=== PATIENT | female | born 1985 | race American Indian/Alaskan Native ===

== ENCOUNTER 2019-01-30 04:04 | Emergency (ER) | payer SELFPAY ==
[2019-01-30 05:02] LABS: Bilirubin,Urine NEG (Negative); Blood,Urine MOD (Negative); Color,Urine Yellow (Yellow); Urobilinogen,Urine < 2.0 mg/dL (<2.0)
[2019-01-30 05:03] LABS: HCG Qualitative,Urine Negative (Negative)
[2019-01-30 05:05] LABS: WBC,Urine > 182.0 /HPF (0.0-6.0)
[2019-01-30] MEDS ORDERED: KETOROLAC 30 MG/1 ML INJ IM ONE (06:06)
[2019-01-30] MEDS ORDERED: LIDOCAINE-MPF (1%) 10 MG/1 ML VIAL 5 ML INFILTRATI ONE (06:06)
--- NOTE | 2019-01-30 06:07 | Emergency Department Report ---
ED Female HPI - General Chief complaint: Urogenital-Female Stated complaint: PELVIC PRESSURE/FREQ URINATION Source: patient Mode of arrival: Ambulatory Limitations: No Limitations - History of Present Illness Initial comments: Patient is a A2 33-year-old -[place] female with no past medical history presents to the ED with complaint of acute onset persistent severe low back pain, dysuria, urinary frequency and urgency, vaginal tingling and suprapubic pressure for the last 5 days. Patient denies diarrhea, nausea, vomiting, headache, chest pain, shortness of breath, fever, chills, cough or dizziness. MD Complaint: dysuria, other (lower back pain) -: Sudden, days(s) (5) Location: suprapubic Radiation: non-radiating Severity: moderate Severity scale (0 -10): 4 Quality: cramping, sharp, aching Consistency: constant Improves with: none Worsens with: urination Are you Now?: No Associated Symptoms: denies other symptoms, abdominal pain, dysuria. denies: vaginal discharge, vaginal bleeding, nausea/vomiting, fever/chills, headaches, loss of appetite, hematuria, rash, seizure, shortness of breath, syncope, weakness - Related Data Sexually active: Yes : 4 Para: 2 A: 2 Previous Rx's Medication Instructions Recorded Last Taken Type Cyclobenzaprine [Flexeril] 10 mg PO Q8H PRN #15 tablet 01/30/19 Unknown Rx Ibuprofen [Motrin] 600 mg PO Q8H PRN #24 tablet 01/30/19 Unknown Rx Sulfamethoxazole/Trimethoprim 1 each PO Q12H #20 tablet 01/30/19 Unknown Rx [Bactrim DS TAB] Allergies Allergy/AdvReac Type Severity Reaction Status Date / Time shellfish derived Allergy Anaphylaxis Verified 06/04/14 19:06 ED Review of Systems ROS: Stated complaint: PELVIC PRESSURE/FREQ URINATION Other details as noted in HPI Constitutional: denies: chills, fever Eyes: denies: eye pain, eye discharge, vision change ENT: denies: ear pain, throat pain Respiratory: denies: cough, shortness of breath, wheezing Cardiovascular: denies: chest pain, palpitations Endocrine: no symptoms reported Gastrointestinal: abdominal pain (suprapubic pressure). denies: nausea, diarrhea Genitourinary: urgency, dysuria, frequency. denies: discharge Musculoskeletal: back pain. denies: joint swelling, arthralgia Skin: denies: rash, lesions Neurological: denies: headache, weakness, paresthesias Psychiatric: denies: anxiety, depression Hematological/Lymphatic: denies: easy bleeding, easy bruising ED Past Medical Hx - Past Medical History Previous Medical History?: Yes Hx Hypertension: No Hx Congestive Heart Failure: No Hx Diabetes: No Hx Deep Vein Thrombosis: No Hx Renal Disease: No Hx Sickle Cell Disease: No Hx Seizures: No Hx Asthma: No Hx COPD: No Hx HIV: No Additional medical history: ovarian cyst - Surgical History Past Surgical History?: No - Social History Smoking Status: Never Smoker Substance Use Type: None - Medications Home Medications: Home Medications Medication Instructions Recorded Confirmed Last Taken Type Cyclobenzaprine [Flexeril] 10 mg PO Q8H PRN #15 tablet 01/30/19 Unknown Rx Ibuprofen [Motrin] 600 mg PO Q8H PRN #24 tablet 01/30/19 Unknown Rx Sulfamethoxazole/Trimethoprim 1 each PO Q12H #20 tablet 01/30/19 Unknown Rx [Bactrim DS TAB] ED Physical Exam - General Limitations: No Limitations General appearance: alert, in no apparent distress - Head Head exam: Present: atraumatic, normocephalic, normal inspection - Eye Eye exam: Present: normal appearance, PERRL, EOMI Pupils: Present: normal accommodation - ENT ENT exam: Present: normal exam, normal orophraynx, mucous membranes moist, TM's normal bilaterally, normal external ear exam - Neck Neck exam: Present: normal inspection, full ROM - Respiratory Respiratory exam: Present: normal lung sounds bilaterally. Absent: respiratory distress, wheezes, chest wall tenderness, accessory muscle use, decreased breath sounds, prolonged expiratory - Cardiovascular Cardiovascular Exam: Present: regular rate, normal rhythm, normal heart sounds. Absent: systolic murmur, diastolic murmur, rubs, gallop - GI/Abdominal GI/Abdominal exam: Present: soft, normal bowel sounds. Absent: tenderness, guarding, rebound, hyperactive bowel sounds, hypoactive bowel sounds, mass - Extremities Exam Extremities exam: Present: normal inspection, full ROM, normal capillary refill - Back Exam Back exam: Present: normal inspection, full ROM - Neurological Exam Neurological exam: Present: alert, oriented X3, CN II-XII intact, normal gait, reflexes normal - Psychiatric Psychiatric exam: Present: normal affect, normal mood - Skin Skin exam: Present: warm, dry, intact, normal color. Absent: rash ED Course - Reevaluation(s) Reevaluation #1: 01/30/19 06:09 This is a 33-year-old female who presented to the ED with dysuria, urinary frequency and urgency, suprapubic pressure and low back pain for the last 5 days. Urinalysis showed significant urinary tract infection. Patient was treated in the ED with Rocephin and Toradol. On reevaluation, patient's pain is well-controlled medication and patient will discharge home on medications including antibiotics and pain medications, and was advised to follow-up with her primary care physician in 5-7 days for reevaluation or return to the ED immediately if symptoms get worse. ED Medical Decision Making - Medical Decision Making This is a 33-year-old female who presented to the ED with dysuria, urinary frequency and urgency, suprapubic pressure and low back pain for the last 5 days. Urinalysis showed significant urinary tract infection. Patient was treated in the ED with Rocephin and Toradol. On reevaluation, patient's pain is well-controlled medication and patient will discharge home on medications including antibiotics and pain medications, and was advised to follow-up with her primary care physician in 5-7 days for reevaluation or return to the ED immediately if symptoms get worse. - Differential Diagnosis acute low back pain; acute UTI; suprapubic pressure Critical care attestation.: If time is entered above; I have spent that time in minutes in the direct care of this critically ill patient, excluding procedure time. ED Disposition Clinical Impression: Acute urinary tract infection, Spasm of muscle of lower back Acute low back pain Qualifiers: Back pain laterality: unspecified Sciatica presence: without sciatica Qualified Code(s): M54.5 - Low back pain Disposition: - TO HOME OR SELFCARE Is pt being admited?: No Does the pt Need Aspirin: No Condition: Stable Instructions: Urinary Tract Infection in Women (ED), Muscle Spasm (ED) Additional Instructions: Take medication with food, drink plenty of fluids and follow-up with your primary care physician in 5-7 days for reevaluation. Return to the ED immediately if symptoms get worse. Prescriptions: Sulfamethoxazole/Trimethoprim [Bactrim DS TAB] 1 each PO Q12H #20 tablet Cyclobenzaprine [Flexeril] 10 mg PO Q8H PRN #15 tablet PRN Reason: Muscle Spasm Ibuprofen [Motrin] 600 mg PO Q8H PRN #24 tablet PRN Reason: Pain Referrals: [facility] [Outside] - 3-5 Days Forms: Work/School Release Form(ED) Time of Disposition: 06:11 Print Language: PASHTO
[2019-01-30 07:08] VITALS: BP 125/83
== END 2019-01-30 07:10 | disposition home or self-care (01) ==
LOC: ED 04:04
DX: N39.0 Urinary tract infection, site not specified (principal); M62.830 Muscle spasm of back; Z91.013 Allergy to seafood; Z88.1 Allergy status to other antibiotic agents; Z79.899 Other long term (current) drug therapy
CPT/HCPCS: 81001; 81025; 96372; 99283; J0696; J1885

== ENCOUNTER 2019-01-30 08:17 | Emergency (ER) | payer SELFPAY ==
[2019-01-30 08:25] VITALS: BP 124/88
[2019-01-30] MEDS ORDERED: FAMOTIDINE 20 MG TAB PO ONE (08:34)
[2019-01-30] MEDS ORDERED: diphenhydrAMINE 25 MG CAP PO ONE (08:34)
[2019-01-30] MEDS ORDERED: dexAMETHasone 4 MG/ML VIAL IM ONE (08:35)
--- NOTE | 2019-01-30 08:43 | Emergency Department Report ---
ED Allergic Reaction HPI - General Chief complaint: Allergic Reaction Stated complaint: ALLERGIC REACTION Time Seen by Provider: 01/30/19 08:29 Source: patient Mode of arrival: Ambulatory Limitations: No Limitations - History of Present Illness Initial Comments: Patient is a 33-year-old female presents the emergency room with complaints of allergic reaction that occurred just prior to arrival. She states that she was evaluated in the ED earlier this morning for a urinary tract infection and given an injection of ceftriaxone and Toradol. she states about an hour and a half later she began to break out in a rash. States she has constantly been itching. Patient denies any shortness of breath, sensation of throat closing, difficulty tolerating secretions. she denies any past medical history. States her only known allergy is shellfish. - Related Data Previous Rx's Medication Instructions Recorded Last Taken Type Cyclobenzaprine [Flexeril] 10 mg PO Q8H PRN #15 tablet 01/30/19 Unknown Rx Ibuprofen [Motrin] 600 mg PO Q8H PRN #24 tablet 01/30/19 Unknown Rx Sulfamethoxazole/Trimethoprim 1 each PO Q12H #20 tablet 01/30/19 Unknown Rx [Bactrim DS TAB] Allergies Allergy/AdvReac Type Severity Reaction Status Date / Time ceftriaxone Allergy Hives Verified 01/30/19 09:25 ketorolac [From Toradol] Allergy Hives Verified 01/30/19 09:25 shellfish derived Allergy Anaphylaxis Verified 06/04/14 19:06 ED Review of Systems ROS: Stated complaint: ALLERGIC REACTION Other details as noted in HPI Comment: All other systems reviewed and negative ED Past Medical Hx - Past Medical History Hx Hypertension: No Hx Congestive Heart Failure: No Hx Diabetes: No Hx Deep Vein Thrombosis: No Hx Renal Disease: No Hx Sickle Cell Disease: No Hx Seizures: No Hx Asthma: No Hx COPD: No Hx HIV: No Additional medical history: ovarian cyst - Surgical History Past Surgical History?: No - Social History Smoking Status: Never Smoker Substance Use Type: Alcohol - Medications Home Medications: Home Medications Medication Instructions Recorded Confirmed Last Taken Type Cyclobenzaprine [Flexeril] 10 mg PO Q8H PRN #15 tablet 01/30/19 Unknown Rx Ibuprofen [Motrin] 600 mg PO Q8H PRN #24 tablet 01/30/19 Unknown Rx Sulfamethoxazole/Trimethoprim 1 each PO Q12H #20 tablet 01/30/19 Unknown Rx [Bactrim DS TAB] ED Physical Exam - General Limitations: No Limitations General appearance: alert, in no apparent distress - Head Head exam: Present: atraumatic, normocephalic - Eye Eye exam: Present: normal appearance - ENT ENT exam: Present: normal orophraynx, mucous membranes moist, other (no uvular edema, uvula is midline, no facial edema, no lip edema, no signs of angioedema) - Respiratory Respiratory exam: Present: normal lung sounds bilaterally. Absent: respiratory distress, wheezes, rales, rhonchi, stridor, chest wall tenderness, accessory muscle use, decreased breath sounds, prolonged expiratory - Cardiovascular Cardiovascular Exam: Present: regular rate, normal rhythm, normal heart sounds. Absent: systolic murmur, diastolic murmur, rubs, gallop - Neurological Exam Neurological exam: Present: alert, oriented X3 - Psychiatric Psychiatric exam: Present: normal affect, normal mood - Skin Skin exam: Present: warm, dry, rash (very small skin colored papules diffusely, no erythema, no blistering, no skin denuding ) ED Course Vital Signs 01/30/19 01/30/19 08:21 09:41 Temperature 97.8 F Pulse Rate 75 78 Respiratory 15 16 Rate Blood Pressure 124/88 O2 Sat by Pulse 99 100 Oximetry ED Medical Decision Making - Medical Decision Making Patient is a 33-year-old female presents the emergency room with complaints of allergic reaction that occurred just prior to arrival. She states that she was evaluated in the ED earlier this morning for a urinary tract infection and given an injection of ceftriaxone and Toradol. she states about an hour and a half later she began to break out in a rash. States she has constantly been itching. Patient denies any shortness of breath, sensation of throat closing, difficulty tolerating secretions. she denies any past medical history. States her only known allergy is shellfish. vitals are normal. on exam: no uvular edema, uvula is midline, no facial edema, no lip edema, no signs of angioedema, lung sounds are clear bilaterally, no stridor, very small skin colored papules diffusely, no erythema, no blistering, no skin denuding. pt given dexamethasone, benadryl, and pepcid. pt states her symptoms significantly resolved and she is feeling much better. She was observed in the emergency room for an hour and a half and had no further symptoms. advised patient that she can take Benadryl [id number] or use cortisone cream for itching. ceftriaxone and Toradol were added to her allergy list. advised pt to please follow-up with a primary care doctor in the next 2-3 days. please increase your fluid intake. Return to the emergency room immediately for any new or worsening symptoms or if begin experiencing symptoms again. Critical care attestation.: If time is entered above; I have spent that time in minutes in the direct care of this critically ill patient, excluding procedure time. ED Disposition Clinical Impression: Allergic reaction Qualifiers: Encounter type: initial encounter Qualified Code(s): T78.40XA - Allergy, unspecified, initial encounter Disposition: TO HOME OR SELFCARE Is pt being admited?: No Does the pt Need Aspirin: No Condition: Stable Instructions: Antibiotic Medication Allergy (ED) Additional Instructions: Please follow-up with a primary care doctor in the next 2-3 days. please increase your fluid intake. Return to the emergency room immediately for any new or worsening symptoms or if begin experiencing symptoms again. Referrals: [facility] [Provider Group] - 2-3 Days [facility] [Outside] - 2-3 Days [facility] [Outside] - 2-3 Days Time of Disposition: 09:28 Print Language: CROATIAN
== END 2019-01-30 09:41 | disposition home or self-care (01) ==
LOC: ED 08:17
DX: T78.40XA Allergy, unspecified, initial encounter (principal); Z79.899 Other long term (current) drug therapy; Z88.6 Allergy status to analgesic agent; Z88.1 Allergy status to other antibiotic agents; Z91.013 Allergy to seafood; X58.XXXA Exposure to other specified factors, initial encounter
CPT/HCPCS: 96372; 99282; J1100

== ENCOUNTER 2019-08-21 12:19 | Observation (INO) | payer SELFPAY ==
[2019-08-21] MEDS ORDERED: SODIUM CHLORIDE 0.9% 1000 ML 1,000 ML IV ONE (12:49)
[2019-08-21] MEDS ORDERED: MORPHINE 4 MG/1 ML INJ IV ONE (12:49)
[2019-08-21] MEDS ORDERED: ONDANSETRON 4 MG/2 ML INJ IV ONE (12:49)
[2019-08-21 12:59] LABS: Basophils % (Auto) 0.3 % (0.0-1.8); Eosinophils % (Auto) 0.2 % (0.0-4.3); Hematocrit 34.1 % (30.3-42.9); Hemoglobin 11.2 gm/dl (10.1-14.3); Lymphocytes # (Auto) 1.5 K/mm3 (1.2-5.4); Lymphocytes % (Auto) 18.4 % (13.4-35.0); Mean Corpuscular HGB Conc 33 % (30-34); Mean Corpuscular Volume 80 fl (79-97); Monocytes # (Auto) 0.7 K/mm3 (0.0-0.8); Monocytes % (Auto) 8.8 % (0.0-7.3); Platelet Count 289 K/mm3 (140-440); Red Blood Count 4.26 M/mm3 (3.65-5.03); Red Cell Distribution Width 14.9 % (13.2-15.2)
[2019-08-21 13:19] LABS: Alanine Aminotransferase 34 units/L (7-56); Albumin 4.3 g/dL (3.9-5); BUN/Creatinine Ratio 10; Blood Urea Nitrogen 6 mg/dL (7-17); Calcium 9.3 mg/dL (8.4-10.2); Hemolysis Index 5
--- NOTE | 2019-08-21 14:20 | Emergency Department Report ---
<MUKUL FIELD - Last Filed: 08/21/19 15:23> ED HPI - General Chief complaint: Abdominal Pain Stated complaint: ABD PAIN/NO BOWEL MOVEMENT Time Seen by Provider: 08/21/19 12:41 Source: patient Mode of arrival: Ambulatory Limitations: No Limitations - History of Present Illness Initial comments: This is a 34-year-old female nontoxic, well nourished in appearance, no acute signs of distress presents to the ED with c/o of pelvic pain x several days. Patient denies any nausea or vomiting. Patient describes pelvic pain as cramping and aching with level of 3/10 diffuse. Stated is not sure if she is . Patient denies chest pain, short of breath, fever, hemoptysis, blood in stool, chills, headache, stiff neck, numbness or tingling. Patient denies any diarrhea or constipation. Denies any blood in stool. Patient denies any recent travels. Patient stated allergies to ceftriaxone and ketorolac. Deneis any signficant PMH. Denies any upper abdominal pain or discomfort. Denies any vaginal bleeding. -: days(s) Location: pelvis Radiation: none Severity: mild Severity scale (0 -10): 3 Quality: cramping, aching Consistency: constant Improves with: none Worsens with: none Associated symptoms: denies other symptoms. denies: nausea/vomiting, vaginal bl eeding, vaginal discharge, abdominal pain, dysuria, headache, vision changes, malaise, dysparuenia, rash, seizure, shortness of breath, syncope, weakness :: Yes Pre-cole care: none - Related Data Home Medications Medication Instructions Recorded Confirmed Last Taken traMADoL [Ultram] 50 mg PO Q4HR PRN 08/21/19 08/21/19 Unknown Previous Rx's Medication Instructions Recorded Last Taken Type Ibuprofen [Motrin] 600 mg PO Q8H PRN #24 tablet 01/30/19 Unknown Rx Allergies Allergy/AdvReac Type Severity Reaction Status Date / Time ceftriaxone Allergy Hives Verified 01/30/19 09:25 ketorolac [From Toradol] Allergy Hives Verified 01/30/19 09:25 shellfish derived Allergy Anaphylaxis Verified 06/04/14 19:06 ED Review of Systems Constitutional: denies: chills, fever Eyes: denies: eye pain, eye discharge, vision change ENT: denies: ear pain, throat pain Respiratory: denies: cough, shortness of breath, wheezing Cardiovascular: denies: chest pain, palpitations Endocrine: no symptoms reported Gastrointestinal: denies: abdominal pain, nausea, diarrhea Genitourinary: denies: urgency, dysuria, discharge Musculoskeletal: denies: back pain, joint swelling, arthralgia Skin: denies: rash, lesions Neurological: denies: headache, weakness, paresthesias Psychiatric: denies: anxiety, depression Hematological/Lymphatic: denies: easy bleeding, easy bruising ED Past Medical Hx - Past Medical History Previous Medical History?: Yes Hx Hypertension: No Hx Congestive Heart Failure: No Hx Diabetes: No Hx Deep Vein Thrombosis: No Hx Renal Disease: No Hx Sickle Cell Disease: No Hx Seizures: No Hx Asthma: No Hx COPD: No Hx HIV: No Additional medical history: ovarian cyst - Surgical History Past Surgical History?: No - Social History Smoking Status: Current Some Day Smoker Substance Use Type: Alcohol, Marijuana - Medications Home Medications: Home Medications Medication Instructions Recorded Confirmed Last Taken Type Ibuprofen [Motrin] 600 mg PO Q8H PRN #24 tablet 01/30/19 08/21/19 Unknown Rx traMADoL [Ultram] 50 mg PO Q4HR PRN 08/21/19 08/21/19 Unknown History ED Physical Exam - General Limitations: No Limitations General appearance: alert, in no apparent distress - Head Head exam: Present: atraumatic, normocephalic - Eye Eye exam: Present: normal appearance - Neck Neck exam: Present: normal inspection, full ROM. Absent: tenderness, meningismus, lymphadenopathy - Respiratory Respiratory exam: Present: normal lung sounds bilaterally. Absent: respiratory distress, wheezes, rales, rhonchi, stridor, chest wall tenderness, accessory muscle use, decreased breath sounds, prolonged expiratory - Cardiovascular Cardiovascular Exam: Present: regular rate, normal rhythm, tachycardia, normal heart sounds. Absent: irregular rhythm, systolic murmur, diastolic murmur, rubs, gallop - GI/Abdominal GI/Abdominal exam: Present: tenderness (RLQ), normal bowel sounds. Absent: distended, guarding, rebound, rigid, diminished bowel sounds - Extremities Exam Extremities exam: Present: normal inspection, full ROM - Back Exam Back exam: Present: normal inspection, full ROM. Absent: tenderness, CVA tenderness (R), CVA tenderness (L), muscle spasm, paraspinal tenderness, vertebral tenderness, rash noted - Neurological Exam Neurological exam: Present: alert, oriented X3, normal gait - Psychiatric Psychiatric exam: Present: normal affect, normal mood - Skin Skin exam: Present: warm, dry, intact, normal color. Absent: rash ED Course - Reevaluation(s) Reevaluation #1: 08/21/19 14:25 Patient is speaking in full sentences with no signs of distress noted. - Consultations Consultation #1: 08/21/19 14:49 Patient has been consulted with James Young about patient history, physical exam, and labs/US and examined patient and agrees for consultation with OBGYN. Consultation #2: 08/21/19 14:53 Patient has been consulted with Dr. Oseguera (OBGYN) about patient history, physical exam, and labs/US and stated to discharge with given methotrexate but Dr. españa then spoke with her as well accepts patient to services with admission. ED Medical Decision Making - Lab Data Result diagrams: 08/21/19 12:30 08/21/19 12:30 - Medical Decision Making This is a 34-year-old female that presents with ectopic . Patient is currently stable and was examined by me and Dr. De Souza. Patient was consulted with Dr. Oseguera (RECEPTIONIST TELEPHONE OPERATOR) and accepts patient to services. Methotrexate canceled without giving to patient. Patient placed on monitor. At time of admission, the patient does not seem toxic or ill in appearance. No acute signs of distress noted. Patient agrees to admission treatment plan of care. No further questions noted by the patient. ED Disposition Clinical Impression: Ectopic Qualifiers: Location of ectopic : tubal Intrauterine status: with intrauterine Laterality: right Qualified Code(s): O00.111 - Right tubal with intrauterine Disposition: DC-09 OP ADMIT IP TO THIS HOSP Is pt being admited?: Yes Condition: Serious <ANSLEY DE SOUZA - Last Filed: 08/22/19 06:11> ED Review of Systems ROS: Stated complaint: ABD PAIN/NO BOWEL MOVEMENT Other details as noted in HPI ED Course Vital Signs 08/21/19 08/21/19 08/21/19 12:25 13:34 15:20 Temperature 98 F Pulse Rate 128 H Respiratory 20 18 20 Rate Blood Pressure 142/91 Blood Pressure [Right] O2 Sat by Pulse 99 Oximetry 08/21/19 08/21/19 08/21/19 15:50 15:59 16:19 Temperature 97.9 F Pulse Rate 78 Respiratory 18 16 Rate Blood Pressure Blood Pressure 132/81 [Right] O2 Sat by Pulse 99 Oximetry ED Medical Decision Making - Lab Data Result diagrams: 08/21/19 15:41 08/21/19 12:30 - Medical Decision Making I went to see this patient after receiving the ultrasound results showing concern for left ectopic , and possible ruptured ectopic. Patient is tender to palpation. No abdominal distention. Mild tachycardia. I spoke with the RECEPTIONIST TELEPHONE OPERATOR on-call, Dr. Oseguera, and the patient will be admitted to her service. Repeat H/H ordered. Critical care attestation.: If time is entered above; I have spent that time in minutes in the direct care of this critically ill patient, excluding procedure time. ED Disposition Is pt being admited?: Yes
--- NOTE | 2019-08-21 14:52 | Ultrasound Report ---
ULTRASOUND OBSTETRIC INDICATION / CLINICAL INFORMATION: pelvic pain. TECHNIQUE: Transabdominal and Transvaginal. COMPARISON: None available. FINDINGS: No IUP is visualized on the transabdominal or transvaginal images. Uterus measures 8.8 x 3.6 x 4.4 cm . Endometrial stripe measures 9 mm. ADNEXA: Probable right tubal ectopic. Left ovary appears within normal limits. FREE FLUID: Moderate amount of free fluid within the pelvic cul-de-sac. ADDITIONAL FINDINGS: None. IMPRESSION: 1. Probable right tubal ectopic with moderate amount of free fluid/hemoperitoneum. 2. No IUP. Critical result discovered at 145 central standard time hours and called to Dr. De Souza at hours on 147 central standard time. A read back was performed. Signer Name: Navi Grigsby MD Signed: 08/21/2019 2:47 PM Workstation Name: [id number]
[2019-08-21] MEDS ORDERED: HYDROmorphone 1 MG/1 ML INJ IV ONE (14:53)
[2019-08-21 15:51] LABS: Hematocrit 30.9 % (30.3-42.9); Hemoglobin 10.3 gm/dl (10.1-14.3)
--- NOTE | 2019-08-21 15:53 | History and Physical Report ---
History of Present Illness Date of examination: 08/21/19 Chief complaint: abdominal pain History of present illness: 34yo with three days of N/V abdominal pain and constipation. Seen in ED, has 1.9 right complex cyst and free fluid in the pelvis BHCG 1581 H/H 11.2/34.1 Concern is for ectopic vs rupture corpus luteum Cyst. I reviewed patient's medical record and she has had a 1.9cm complex right adnexal mass-possibly hemorrhagic since 2013. 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: chlamydia, trichomonas, other (HSV, hx of right ovarian cyst) Family/Genetic History: none Social history: no significant social history - Obstetrical History : 2 Medications and Allergies Allergies Allergy/AdvReac Type Severity Reaction Status Date / Time ceftriaxone Allergy Hives Verified 01/30/19 09:25 ketorolac [From Toradol] Allergy Hives Verified 01/30/19 09:25 shellfish derived Allergy Anaphylaxis Verified 06/04/14 19:06 Home Medications Medication Instructions Recorded Confirmed Last Taken Type Cyclobenzaprine [Flexeril] 10 mg PO Q8H PRN #15 tablet 01/30/19 Unknown Rx Ibuprofen [Motrin] 600 mg PO Q8H PRN #24 tablet 01/30/19 Unknown Rx Sulfamethoxazole/Trimethoprim 1 each PO Q12H #20 tablet 01/30/19 Unknown Rx [Bactrim DS TAB] - Vital Signs Vital signs: Vital Signs Temp Pulse Resp BP Pulse Ox 98 F 128 H 20 142/91 99 08/21/19 12:25 08/21/19 12:25 08/21/19 12:25 08/21/19 12:25 08/21/19 12:25 Temp Pulse Resp BP Pulse Ox 98 F 128 H 20 142/91 99 08/21/19 12:25 08/21/19 12:25 08/21/19 15:20 08/21/19 12:25 08/21/19 12:25 Results Result Diagrams: 08/21/19 15:41 08/21/19 12:30 Abnormal lab results 08/21/19 08/21/19 08/21/19 Range/Units 12:30 12:30 13:16 MCH 26 L (28-32) pg [place] % (Auto) 8.8 H (0.0-7.3) % Seg Neutrophils % 72.3 H (40.0-70.0) % Sodium 136 L (137-145) mmol/L BUN 6 L (7-17) mg/dL Creatinine 0.6 L (0.7-1.2) mg/dL Glucose 113 H (65-100) mg/dL Lipase 10 L (13-60) units/L HCG, Quant 1581 H (0-4) mIU/mL All other labs normal. Ultrasound: report reviewed, image reviewed Assessment and Plan Pelvic pain DDX: rupture hemorrhagic cyst, ruptured corpus luteum cyst, possible early IUP, possible ectopic Plan: Patient remains hemodynamically stable plan for conservative managment Operative laparoscopy if her hemodynamic status changes consider methotrexate in the morning NPO, IV fluids zofran,dilaudid kostas Oseguera MD
[2019-08-21 16:15] LABS: Bilirubin,Urine NEG (Negative); Blood,Urine MOD (Negative); Color,Urine Colorless (Yellow); Protein,Urine <15 mg/dL mg/dL (Negative); RBC,Urine < 1.0 /HPF (0.0-6.0); Urobilinogen,Urine < 2.0 mg/dL (<2.0); WBC,Urine < 1.0 /HPF (0.0-6.0)
[2019-08-21] MEDS ORDERED: ONDANSETRON 4 MG/2 ML INJ IV PRN (16:15)
[2019-08-21] MEDS: LACTATED RINGERS 1,000 ML IV SCH (18:24)
[2019-08-21] MEDS: MORPHINE 2 MG/1 ML INJ IV PRN (19:46)
[2019-08-22] MEDS: MORPHINE 2 MG/1 ML INJ IV PRN (00:53)
[2019-08-22] MEDS: LACTATED RINGERS 1,000 ML IV SCH ×2 (01:50→09:25)
--- NOTE | 2019-08-22 07:46 | Progress Note ---
Assessment and Plan possible ectopic NPO possible surgical management awaiting repeat Hb Tyson Oseguera MD Subjective - Subjective Date of service: 08/22/19 Interval history: possible ectopic hemodynamically stable AAOx3 discuss methotrexate vs laparoscopy NPO awaiting repeat Hb before making a decision patient sitting up in bed, no N/V Objective - Vital Signs Latest vital signs: Vital Signs Temp Pulse Resp Resp BP BP BP 08/22/19 01:22 97.8 F 18 08/22/19 00:53 18 08/22/19 00:32 93 H 119/72 08/21/19 20:17 97.9 F 89 19 135/86 08/21/19 20:15 18 08/21/19 19:46 18 08/21/19 19:45 18 08/21/19 17:10 98.2 F 81 18 126/75 08/21/19 16:19 97.9 F 08/21/19 15:59 78 16 132/81 08/21/19 15:50 18 08/21/19 15:20 20 08/21/19 13:34 18 08/21/19 12:25 98 F 128 H 20 142/91 Pulse Ox 08/22/19 01:22 08/22/19 00:53 08/22/19 00:32 100 08/21/19 20:17 100 08/21/19 20:15 08/21/19 19:46 08/21/19 19:45 08/21/19 17:10 100 08/21/19 16:19 08/21/19 15:59 99 08/21/19 15:50 08/21/19 15:20 08/21/19 13:34 08/21/19 12:25 99 Intake and Output 08/21/19 08/21/19 08/22/19 15:59 23:59 07:59 Intake Total 240 1169.167 Output Total 300 500 Balance -60 669.167 Intake: IV 929.167 Lactated Ringers 1,000 ml 929.167 @ 125 mls/hr IV DIRECT ELROY Rx#:[id number] Oral 240 240 Output: Urine 300 500 Void 300 500 Other: Total, Intake Amount 240 240 Total, Output Amount 300 500 Voiding Method Toilet Weight 77.111 kg 77.111 kg - Labs Labs: Abnormal lab results 08/21/19 08/21/19 08/21/19 Range/Units 12:30 12:30 13:16 MCH 26 L (28-32) pg [place] % (Auto) 8.8 H (0.0-7.3) % Seg Neutrophils % 72.3 H (40.0-70.0) % Sodium 136 L (137-145) mmol/L BUN 6 L (7-17) mg/dL Creatinine 0.6 L (0.7-1.2) mg/dL Glucose 113 H (65-100) mg/dL Lipase 10 L (13-60) units/L HCG, Quant 1581 H (0-4) mIU/mL Ur Specific [place] (1.003-1.030) 08/21/19 Range/Units 15:58 MCH (28-32) pg [place] % (Auto) (0.0-7.3) % Seg Neutrophils % (40.0-70.0) % Sodium (137-145) mmol/L BUN (7-17) mg/dL Creatinine (0.7-1.2) mg/dL Glucose (65-100) mg/dL Lipase (13-60) units/L HCG, Quant (0-4) mIU/mL Ur Specific [place] 1.001 L (1.003-1.030)
[2019-08-22 07:51] LABS: Hematocrit 27.9 % (30.3-42.9); Hemoglobin 9.5 gm/dl (10.1-14.3); Mean Corpuscular HGB Conc 34 % (30-34); Mean Corpuscular Volume 80 fl (79-97); Platelet Count 237 K/mm3 (140-440); Red Blood Count 3.49 M/mm3 (3.65-5.03); Red Cell Distribution Width 14.2 % (13.2-15.2)
[2019-08-22] MEDS ORDERED: HYDROmorphone 1 MG/1 ML INJ IV PRN (09:47)
[2019-08-22] MEDS ORDERED: MIDAZOLAM 2 MG/2 ML INJ IV NR (10:00)
[2019-08-22] MEDS ORDERED: SCOPOLAMINE TRANSDERMAL PATCH 72 HR TD NR (10:00)
[2019-08-22] MEDS ORDERED: propofoL 200 MG/20 ML VIAL IV ONE (10:07)
[2019-08-22] MEDS ORDERED: ONDANSETRON 4 MG/2 ML INJ ONE (10:07)
[2019-08-22] MEDS ORDERED: HYDROmorphone 1 MG/1 ML INJ ONE (10:07)
[2019-08-22] MEDS ORDERED: ROCURONIUM 50 MG/5 ML INJ IV ONE (10:07)
[2019-08-22] MEDS ORDERED: dexAMETHasone 20 MG/5 ML VIAL ONE (10:07)
[2019-08-22] MEDS ORDERED: LIDOCAINE MPF (2%) 20 MG/1 ML VIAL 5 ML ONE (10:07)
--- NOTE | 2019-08-22 10:27 | Progress Note ---
Assessment and Plan ectopic Plan patient declines surgery Methotrexate stat FUp in 4 days for repeat blood draw Rx maxwell Tomas MD Subjective - Subjective Date of service: 08/22/19 Principal diagnosis: ectopic Interval history: possible ectopic Hb 9.5 Hemodynamically stable I had a long conversation with this patient regarding surgical management vs methotrexate. I had placed this patient on the OR schedule and she is declining operative management I reviewed significant morbidity and mortality related to possible ruptured ectopic I reviewed the side effects related to methotrexate to include but not limited to nausea,vomiting and increased pain or vaginal bleeding She also understands she will require close follow up and must return to the ER for any change in clinical status She is sitting up, crossing legs, able to ambulate and tolerate PO Patient reports: ambulating normally Objective - Vital Signs Latest vital signs: Vital Signs Temp Pulse Resp Resp BP BP BP 08/22/19 08:43 98.1 F 84 16 129/79 08/22/19 01:22 97.8 F 18 08/22/19 00:53 18 08/22/19 00:32 93 H 119/72 08/21/19 20:17 97.9 F 89 19 135/86 08/21/19 20:15 18 08/21/19 19:46 18 08/21/19 19:45 18 08/21/19 17:10 98.2 F 81 18 126/75 08/21/19 16:19 97.9 F 08/21/19 15:59 78 16 132/81 08/21/19 15:50 18 08/21/19 15:20 20 08/21/19 13:34 18 08/21/19 12:25 98 F 128 H 20 142/91 Pulse Ox 08/22/19 08:43 100 08/22/19 01:22 08/22/19 00:53 08/22/19 00:32 100 08/21/19 20:17 100 08/21/19 20:15 08/21/19 19:46 08/21/19 19:45 08/21/19 17:10 100 08/21/19 16:19 08/21/19 15:59 99 08/21/19 15:50 08/21/19 15:20 08/21/19 13:34 08/21/19 12:25 99 Intake and Output 08/21/19 08/22/19 08/22/19 23:59 07:59 15:59 Intake Total 240 1169.167 947.917 Output Total 300 500 Balance -60 669.167 947.917 Intake: IV 929.167 947.917 Lactated Ringers 1,000 ml 929.167 947.917 @ 125 mls/hr IV DIRECT ELROY Rx#:[id number] Oral 240 240 Output: Urine 300 500 Void 300 500 Other: Total, Intake Amount 240 240 Total, Output Amount 300 500 Voiding Method Toilet Toilet Weight 77.111 kg - Exam Breasts: Present: deferred Cardiovascular: Present: Regular rate Lungs: Present: Clear to auscultation Abdomen: Present: normal appearance, soft, normal bowel sounds (+ve RLQ tenderness, no rebound or guarding,negative leg raise bilaterally) Deep Tendon Reflex Grade: Normal +2 - Labs Labs: Abnormal lab results 08/21/19 08/21/19 08/21/19 Range/Units 12:30 12:30 13:16 RBC (3.65-5.03) M/mm3 Hgb (10.1-14.3) gm/dl Hct (30.3-42.9) % MCH 26 L (28-32) pg [place] % (Auto) 8.8 H (0.0-7.3) % Seg Neutrophils % 72.3 H (40.0-70.0) % Sodium 136 L (137-145) mmol/L BUN 6 L (7-17) mg/dL Creatinine 0.6 L (0.7-1.2) mg/dL Glucose 113 H (65-100) mg/dL Lipase 10 L (13-60) units/L HCG, Quant 1581 H (0-4) mIU/mL Ur Specific [place] (1.003-1.030) 08/21/19 08/22/19 Range/Units 15:58 06:48 RBC 3.49 L (3.65-5.03) M/mm3 Hgb 9.5 L (10.1-14.3) gm/dl Hct 27.9 L (30.3-42.9) % MCH 27 L (28-32) pg [place] % (Auto) (0.0-7.3) % Seg Neutrophils % (40.0-70.0) % Sodium (137-145) mmol/L BUN (7-17) mg/dL Creatinine (0.7-1.2) mg/dL Glucose (65-100) mg/dL Lipase (13-60) units/L HCG, Quant (0-4) mIU/mL Ur Specific [place] 1.001 L (1.003-1.030)
--- NOTE | 2019-08-22 12:15 | Ultrasound Report ---
ULTRASOUND OBSTETRIC INDICATION / CLINICAL INFORMATION: pelvic pain. TECHNIQUE: Transabdominal and Transvaginal. COMPARISON: None available. FINDINGS: No IUP is visualized on the transabdominal or transvaginal images. Uterus measures 8.8 x 3.6 x 4.4 cm . Endometrial stripe measures 9 mm. ADNEXA: Probable right tubal ectopic. Left ovary appears within normal limits. FREE FLUID: Moderate amount of free fluid within the pelvic cul-de-sac. ADDITIONAL FINDINGS: None. IMPRESSION: 1. Probable right tubal ectopic with moderate amount of free fluid/hemoperitoneum. 2. No IUP. Critical result discovered at 145 central standard time hours and called to Dr. De Souza at hours on 147 central standard time. A read back was performed. Signer Name: Navi Grigsby MD Signed: 08/21/2019 2:48 PM Workstation Name: [id number]
[2019-08-22 16:02] VITALS: BP 111/71
== END 2019-08-22 16:20 | disposition home or self-care (01) ==
LOC: ED 12:19 → OB 15:22
PROVIDERS: ADMIT Obstetrics & Gynecology; ATTEND Obstetrics & Gynecology
DX: O00.111 Right tubal pregnancy with intrauterine pregnancy (principal); O21.9 Vomiting of pregnancy, unspecified; O99.330 Smoking (tobacco) complicating pregnancy, unspecified trimester; F17.200 Nicotine dependence, unspecified, uncomplicated; Z88.1 Allergy status to other antibiotic agents; Z88.6 Allergy status to analgesic agent; Z91.013 Allergy to seafood; Z3A.00 Weeks of gestation of pregnancy not specified
CPT/HCPCS: 36415; 76801; 76817; 80053; 81001; 83690; 84702; 84703; 85014; 85018; 85025; 85027; 86850; 86900; 86901; 96361; 96372; 96374; 96375; 96376; 99285; G0378; J1100; J1170; J2270; J2405; J7030; J7120; J9260; J2704

== ENCOUNTER 2019-08-26 13:37 | Emergency (ER) | payer SELFPAY ==
--- NOTE | 2019-08-26 13:51 | History and Physical Report ---
History of Present Illness Date of examination: 08/26/19 Chief complaint: ectopic History of present illness: 34yo with ectopic SP methotrexate on 09/21/19 BHCG increased from 1500 to 4074 HB stable at 10.4 PAtient feels better, is able to ambulate, tolerate PO and had no nausea or vomiting. She was seen in the clinic and I recommended surgical management. Patient continues to decline surgical options. She was sent to the ER for a second dose of methotrexate. Extensive education and counseling given in the outpatient setting with risks, benefit and possible complications reviewed. She understands the significant morbidity and mortality related to her current condition and is aware that surgery may be her only option if she fails methotrexate. She is hemodynamically stable. Past History - Obstetrical History : 2 Medications and Allergies Allergies Allergy/AdvReac Type Severity Reaction Status Date / Time ceftriaxone Allergy Hives Verified 01/30/19 09:25 ketorolac [From Toradol] Allergy Hives Verified 01/30/19 09:25 shellfish derived Allergy Anaphylaxis Verified 06/04/14 19:06 Home Medications Medication Instructions Recorded Confirmed Last Taken Type Ibuprofen [Motrin] 600 mg PO Q8H PRN #24 tablet 01/30/19 08/21/19 Unknown Rx traMADoL [Ultram] 50 mg PO Q4HR PRN 08/21/19 08/21/19 Unknown History oxyCODONE /ACETAMINOPHEN [Percocet 1 tab PO Q6HR PRN #20 tablet 08/22/19 Unknown Rx 5/325] - Vital Signs Vital signs: Vital Signs Temp Pulse Resp BP Pulse Ox 98.6 F 86 16 111/68 100 08/26/19 13:39 08/26/19 13:39 08/26/19 13:39 08/26/19 13:39 08/26/19 13:39 Temp Pulse Resp BP Pulse Ox 98.6 F 86 16 111/68 100 08/26/19 13:39 08/26/19 13:39 08/26/19 13:39 08/26/19 13:39 08/26/19 13:39 - Physical Exam Breasts: Positive: normal Cardiovascular: Regular rate Lungs: Positive: Clear to auscultation Abdomen: Positive: normal appearance, soft, normal bowel sounds. Negative: distention, tenderness, guarding, rigidity Deep Tendon Reflex Grade: Normal +2 Results All other labs normal. Assessment and Plan Ectopic Plan: Abdominal exam significantly improved Methotrexate per protocol Follow up in 4 days as outpatient Tyson Oseguera md
--- NOTE | 2019-08-26 15:01 | Emergency Department Report ---
<WILLIAM REAVES - Last Filed: 08/26/19 17:15> ED HPI - General Chief complaint: Abdominal Pain Stated complaint: SENT FROM OBGYN/ECTOPIC Time Seen by Provider: 08/26/19 14:11 Source: patient, RN notes reviewed, old records reviewed Mode of arrival: Ambulatory Limitations: No Limitations - History of Present Illness Initial comments: 34-year-old -[place] female presents to the emergency room stating that Dr. Bernardoton her FINANCE ADVISOR from [facility] to the emergency room to have her second dose of methotrexate. Patient was seen here on 11/20/2019 and was found to have a type of . Patient was then transferred to L&D and then discharged home after having a dose of methotrexate. Patient presented to her OB office today and was noted that her beta hCG had elevated to 4074. Discussion was made with her FINANCE ADVISOR to either have surgical removal other type of or take methotrexate. Patient opted to take methotrexate. Patient denies any abdominal pain reports she has had some light vaginal spotting but no other concerns. Vaginal bleeding: light :: Yes - Related Data Home Medications Medication Instructions Recorded Confirmed Last Taken traMADoL [Ultram] 50 mg PO Q4HR PRN 08/21/19 08/21/19 Unknown Previous Rx's Medication Instructions Recorded Last Taken Type Ibuprofen [Motrin] 600 mg PO Q8H PRN #24 tablet 01/30/19 Unknown Rx oxyCODONE /ACETAMINOPHEN [Percocet 1 tab PO Q6HR PRN #20 tablet 08/22/19 Unknown Rx 5/325] Allergies Allergy/AdvReac Type Severity Reaction Status Date / Time ceftriaxone Allergy Hives Verified 01/30/19 09:25 ketorolac [From Toradol] Allergy Hives Verified 01/30/19 09:25 shellfish derived Allergy Anaphylaxis Verified 06/04/14 19:06 ED Review of Systems Comment: All other systems reviewed and negative ED Past Medical Hx - Past Medical History Previous Medical History?: Yes Hx Hypertension: No Hx Congestive Heart Failure: No Hx Diabetes: No Hx Deep Vein Thrombosis: No Hx Renal Disease: No Hx Sickle Cell Disease: No Hx Seizures: No Hx Asthma: No Hx COPD: No Hx HIV: No Additional medical history: ovarian cyst - Surgical History Past Surgical History?: No - Social History Smoking Status: Current Some Day Smoker Substance Use Type: Alcohol - Medications Home Medications: Home Medications Medication Instructions Recorded Confirmed Last Taken Type Ibuprofen [Motrin] 600 mg PO Q8H PRN #24 tablet 01/30/19 08/21/19 Unknown Rx traMADoL [Ultram] 50 mg PO Q4HR PRN 08/21/19 08/21/19 Unknown History oxyCODONE /ACETAMINOPHEN [Percocet 1 tab PO Q6HR PRN #20 tablet 08/22/19 Unknown Rx 5/325] ED Physical Exam - General Limitations: No Limitations ED Medical Decision Making - Medical Decision Making 34-year-old -Aust[place] female presents to the emergency room stating that Dr. Schulz her FINANCE ADVISOR from [facility] to the emergency room to have her second dose of methotrexate. Patient was seen here on 11/20/2019 and was found to have a type of . Patient was then transferred to L&D and then discharged home after having a dose of methotrexate. Patient presented to her OB office today and was noted that her beta hCG had elevated to 4074. Discussion was made with her FINANCE ADVISOR to either have surgical removal other type of or take methotrexate. Patient opted to take methotrexate. Patient denies any abdominal pain reports she has had some light vaginal spotting but no other concerns. Consent form for methotrexate was signed with patient. Spoke with Dr. Jack she informed me that she placed the order in pharmacy and she would like patient to follow-up next . Discussed with patient that Dr. Schulz will like her to follow-up on in her office to be reevaluated. Patient verbalized understanding. Patient will be discharged home with information on methotrexate. ED Disposition Clinical Impression: Ectopic Qualifiers: Location of ectopic : tubal Intrauterine status: with intrauterine Laterality: right Qualified Code(s): O00.111 - Right tubal with intrauterine Disposition: TO HOME OR SELFCARE Is pt being admited?: No Does the pt Need Aspirin: No Condition: Stable Instructions: Abdominal Pain (ED) Additional Instructions: Dr. Schulz will like her to follow-up on in her office to be reevaluated. Patient verbalized understanding. Patient will be discharged home with information on methotrexate. Referrals: ENRIQUETA BERRIOS MD [Primary Care Provider] - 3-5 Days SERVANDO JACK MD [Staff Physician] - 3-5 Days Forms: Methotrexate D/C Instructions <MICHEAL WHITEHEAD - Last Filed: 08/27/19 19:19> ED Review of Systems ROS: Stated complaint: SENT FROM OBGYN/ECTOPIC Other details as noted in HPI ED Course Vital Signs 08/26/19 08/26/19 13:39 16:55 Temperature 98.6 F 98.1 F Pulse Rate 86 82 Respiratory 16 16 Rate Blood Pressure 111/68 Blood Pressure 118/77 [Left] O2 Sat by Pulse 100 100 Oximetry Critical care attestation.: If time is entered above; I have spent that time in minutes in the direct care of this critically ill patient, excluding procedure time. ED Disposition Is pt being admited?: No Does the pt Need Aspirin: No
[2019-08-26 17:17] VITALS: BP 118/77
== END 2019-08-26 16:55 | disposition home or self-care (01) ==
LOC: ED 13:37
DX: O00.90 Unspecified ectopic pregnancy without intrauterine pregnancy (principal); Z79.899 Other long term (current) drug therapy; Z91.013 Allergy to seafood; Z88.8 Allergy status to other drugs, medicaments and biological substances
CPT/HCPCS: 99282; J9260

== ENCOUNTER 2019-08-30 02:50 | Observation (INO) | payer MEDICAID ==
[2019-08-30] MEDS ORDERED: SODIUM CHLORIDE 0.9% 1000 ML 1,000 ML IV ONE ×2 (03:12→05:09)
[2019-08-30] MEDS ORDERED: MORPHINE 4 MG/1 ML INJ IV ONE (03:12)
--- NOTE | 2019-08-30 03:12 | Emergency Department Report ---
ED Female HPI - General Chief complaint: Vaginal Bleeding Stated complaint: ECTOPIC W/PAIN Time Seen by Provider: 08/30/19 03:01 Source: patient, EMS Mode of arrival: Stretcher Limitations: Physical Limitation - History of Present Illness Initial comments: Ms. Valdes is a 34 yo female who presents with severe buttock and lower back pain which began this evening. She was treated with two doses of methotrexate for ectopic . She has had mild vaginal spotting. She arrives via EMS. Pain is sudden, severe. No radiation. Constant. Worse with movement. Dully achy quality. This is patient's 5th . She has been followed by Dr. Oseguera. According to Dr. Oseguera's documentation, surgical intervention was recommended. However, patient declined. According US on August 21, 2019, impression: probable right tubal ectopic with moderate amount of free fluid/hemoperitoneum -: Sudden, This evening Severity: severe Severity scale (0 -10): 10 Quality: dull, aching Consistency: constant Improves with: none Worsens with: none Are you Now?: Yes (ectopic ) - Related Data Home Medications Medication Instructions Recorded Confirmed Last Taken traMADoL [Ultram] 50 mg PO Q4HR PRN 08/21/19 08/21/19 Unknown Previous Rx's Medication Instructions Recorded Last Taken Type Ibuprofen [Motrin] 600 mg PO Q8H PRN #24 tablet 01/30/19 Unknown Rx oxyCODONE /ACETAMINOPHEN [Percocet 1 tab PO Q6HR PRN #20 tablet 08/22/19 Unknown Rx 5/325] Allergies Allergy/AdvReac Type Severity Reaction Status Date / Time ceftriaxone Allergy Hives Verified 01/30/19 09:25 ketorolac [From Toradol] Allergy Hives Verified 01/30/19 09:25 shellfish derived Allergy Anaphylaxis Verified 06/04/14 19:06 ED Review of Systems ROS: Stated complaint: ECTOPIC W/PAIN Other details as noted in HPI Comment: All other systems reviewed and negative Constitutional: denies: fever, malaise Respiratory: denies: cough, shortness of breath Cardiovascular: denies: chest pain Genitourinary: denies: urgency, dysuria Musculoskeletal: back pain ED Past Medical Hx - Past Medical History Previous Medical History?: Yes Hx Hypertension: No Hx Congestive Heart Failure: No Hx Diabetes: No Hx Deep Vein Thrombosis: No Hx Renal Disease: No Hx Sickle Cell Disease: No Hx Seizures: No Hx Asthma: No Hx COPD: No Hx HIV: No Additional medical history: ovarian cyst - Surgical History Past Surgical History?: No - Social History Smoking Status: Current Every Day Smoker Substance Use Type: None - Medications Home Medications: Home Medications Medication Instructions Recorded Confirmed Last Taken Type Ibuprofen [Motrin] 600 mg PO Q8H PRN #24 tablet 01/30/19 08/21/19 Unknown Rx traMADoL [Ultram] 50 mg PO Q4HR PRN 08/21/19 08/21/19 Unknown History oxyCODONE /ACETAMINOPHEN [Percocet 1 tab PO Q6HR PRN #20 tablet 08/22/19 Unknown Rx 5/325] ED Physical Exam - General Limitations: Physical Limitation General appearance: alert, other (appears in severe pain) - Head Head exam: Present: atraumatic, normocephalic - Eye Eye exam: Present: normal appearance - ENT ENT exam: Present: mucous membranes moist - Neck Neck exam: Present: normal inspection, full ROM - Respiratory Respiratory exam: Present: normal lung sounds bilaterally. Absent: respiratory distress, wheezes, rales, rhonchi - Cardiovascular Cardiovascular Exam: Present: regular rate, normal rhythm, normal heart sounds. Absent: systolic murmur, diastolic murmur, rubs, gallop - GI/Abdominal GI/Abdominal exam: Present: soft, normal bowel sounds. Absent: distended, tenderness, guarding, rebound - Extremities Exam Extremities exam: Present: normal inspection - Neurological Exam Neurological exam: Present: alert, oriented X3 - Psychiatric Psychiatric exam: Present: normal affect, anxious - Skin Skin exam: Present: warm, dry, intact, normal color. Absent: rash ED Course Vital Signs 08/30/19 08/30/19 08/30/19 03:05 03:25 03:55 Temperature 98.2 F Pulse Rate 97 H Respiratory 16 16 16 Rate Blood Pressure 132/80 [Left] O2 Sat by Pulse 99 Oximetry - Reevaluation(s) Reevaluation #1: 08/30/19 03:19 Dr. Dixon consulted. Recommended stat H&H. ED Medical Decision Making - Lab Data Result diagrams: 08/30/19 03:18 08/30/19 03:18 Laboratory Results - last 24 hr 08/30/19 08/30/19 08/30/19 03:14 03:18 03:18 WBC 7.0 RBC 3.90 Hgb 10.1 Hct 31.3 MCV 80 MCH 26 L MCHC 32 RDW 14.3 Plt Count 338 Lymph % (Auto) 20.0 [place] % (Auto) 5.5 Eos % (Auto) 0.9 Baso % (Auto) 0.8 Lymph # 1.4 Ida # 0.4 Eos # 0.1 Baso # 0.1 Seg Neutrophils % 72.8 H Seg Neutrophils # 5.1 PT 13.5 INR 1.02 APTT 27.9 Sodium Potassium Chloride Carbon Dioxide Anion Gap BUN Creatinine Estimated GFR BUN/Creatinine Ratio Glucose Calcium HCG, Quant Urine Color Yellow Urine Turbidity Clear Urine pH 6.0 Ur Specific [place] 1.010 Urine Protein <15 mg/dl Urine Glucose (UA) Neg Urine Ketones Neg Urine Blood Lg Urine Nitrite Neg Urine Bilirubin Neg Urine Urobilinogen 2.0 Ur Leukocyte Esterase Neg Urine WBC (Auto) 1.0 Urine RBC (Auto) 3.0 U Epithel Cells (Auto) 4.0 Urine Bacteria (Auto) 1+ Urine Mucus Few 08/30/19 08/30/19 03:18 03:18 WBC RBC Hgb Hct MCV MCH MCHC RDW Plt Count Lymph % (Auto) [place] % (Auto) Eos % (Auto) Baso % (Auto) Lymph # Ida # Eos # Baso # Seg Neutrophils % Seg Neutrophils # PT INR APTT Sodium 134 L Potassium 3.2 L Chloride 97.9 L Carbon Dioxide 24 Anion Gap 15 BUN 7 Creatinine 0.6 L Estimated GFR > 60 BUN/Creatinine Ratio 12 Glucose 110 H Calcium 9.1 HCG, Quant 2033 H Urine Color Urine Turbidity Urine pH Ur Specific [place] Urine Protein Urine Glucose (UA) Urine Ketones Urine Blood Urine Nitrite Urine Bilirubin Urine Urobilinogen Ur Leukocyte Esterase Urine WBC (Auto) Urine RBC (Auto) U Epithel Cells (Auto) Urine Bacteria (Auto) Urine Mucus - Radiology Data Radiology results: report reviewed Ultrasound reveals: Complex right adnexal lesion measuring 5 cm - Medical Decision Making : Presents with severe back buttock pain after receiving 2 doses of methotrexate for ectopic . She has mild vaginal spotting. Since August 20, hCG has increased from 1581 miu/ml to 2033 miU/ml. No free fluid on US. H&H at baseline. Pain has decreased from 10 to 5 with one dose of morphine. Impression: ectopic which failed methotrexate treatment Dr. Dixon recommended admissionto his service on the mother baby unit I provided bridging orders Critical Care Time: Yes Critical care time in (mins) excluding proc time.: 40 Critical care attestation.: If time is entered above; I have spent that time in minutes in the direct care of this critically ill patient, excluding procedure time. 40 minutes of critical care time excluding procedures were used in the care of the patient. I reviewed electronic record. I discussed treatment plan with the nursing team members at the bedside. I came immediately to the bedside upon patient's arrival. I obtained history from patient. Upon arrival after H&P I consulted jump roll operator regarding concern for ruptured ectopic due to severe pain and previous ultrasound findings. Patient required multiple interventions and reassessments. ED Disposition Clinical Impression: Ectopic Disposition: OP ADMIT IP TO THIS HOSP Is pt being admited?: No Does the pt Need Aspirin: No Condition: Stable
[2019-08-30] MEDS ORDERED: ONDANSETRON 4 MG/2 ML INJ IV ONE (03:14)
[2019-08-30 03:37] LABS: Basophils # (Auto) 0.1 K/mm3 (0.0-0.1); Basophils % (Auto) 0.8 % (0.0-1.8); Eosinophils # (Auto) 0.1 K/mm3 (0.0-0.4); Eosinophils % (Auto) 0.9 % (0.0-4.3); Hematocrit 31.3 % (30.3-42.9); Hemoglobin 10.1 gm/dl (10.1-14.3); Lymphocytes # (Auto) 1.4 K/mm3 (1.2-5.4); Mean Corpuscular HGB Conc 32 % (30-34); Mean Corpuscular Volume 80 fl (79-97); Monocytes # (Auto) 0.4 K/mm3 (0.0-0.8); Monocytes % (Auto) 5.5 % (0.0-7.3); Platelet Count 338 K/mm3 (140-440); Red Cell Distribution Width 14.3 % (13.2-15.2)
[2019-08-30 03:45] LABS: INR 1.02 (0.87-1.13); Partial Thromboplastin Time 27.9 Sec. (24.2-36.6)
[2019-08-30 03:50] LABS: Bacteria,Urine 1+ /HPF (Negative); Bilirubin,Urine NEG (Negative); Blood,Urine LG (Negative); Color,Urine Yellow (Yellow); Mucus,Urine FEW /HPF; Protein,Urine <15 mg/dL mg/dL (Negative)
[2019-08-30 03:54] LABS: BUN/Creatinine Ratio 12; Blood Urea Nitrogen 7 mg/dL (7-17); Calcium 9.1 mg/dL (8.4-10.2); Hemolysis Index 3
--- NOTE | 2019-08-30 04:05 | Ultrasound Report ---
Pelvic ultrasound. HISTORY: Pelvic pain. FINDINGS: The uterus measures 9.1 x 3.1 x 4.2 cm. The endometrial stripe measures 5.7 mm. No intraute rine is identified. Right ovary measures 4.9 x 3.9 x 4.8 cm. Left ovary measures 3.2 x 2.8 x 1.9 cm. Both ovaries demonst rate flow. A complex right adnexal lesion measures 5 x 3.5 x 3.9 cm. The left ovary contains a 1.1 cm complex cyst. Negative for free fluid. IMPRESSION: Complex lesion right adnexa presumably represents the patient's known ectopic . Signer Name: Brad Holm MD Signed: 08/30/2019 4:01 AM Workstation Name: [email or web address]
[2019-08-30] MEDS ORDERED: MORPHINE 4 MG/1 ML INJ IV PRN (05:08)
[2019-08-30] MEDS ORDERED: HYDROcodone/ACETAMINOPHEN 5-325 MG TAB PO PRN (09:01)
[2019-08-30] MEDS ORDERED: MAGNESIUM HYDROXIDE (MOM) ORAL LIQD UDC PO PRN (09:30)
[2019-08-30 09:39] VITALS: BP 109/69
--- NOTE | 2019-08-30 11:04 | History and Physical Report ---
History of Present Illness Date of examination: 08/30/19 Date of admission: 08/30/19 05:07 Chief complaint: pelvic pain History of present illness: Patient with ectopic SP methoretexate x2 doses admitted overnight for obs for pelvic pain she admits at bedside that she has not had a BM in over a week. VB minimal Able to ambulate and tolerate PO, afebrile. She admits she is feeling much better after mtx [facility] 2032 US; no free fluid, +ve 5cm complex mass Past History Past Surgical History: no surgical history - Obstetrical History : 2 Medications and Allergies Allergies Allergy/AdvReac Type Severity Reaction Status Date / Time ceftriaxone Allergy Hives Verified 01/30/19 09:25 ketorolac [From Toradol] Allergy Hives Verified 01/30/19 09:25 shellfish derived Allergy Anaphylaxis Verified 06/04/14 19:06 Home Medications Medication Instructions Recorded Confirmed Last Taken Type oxyCODONE /ACETAMINOPHEN [Percocet 1 tab PO Q6HR PRN #20 tablet 08/22/19 08/30/19 Unknown Rx 5/325] Active Meds: Active Medications Acetaminophen/Hydrocodone Bitart (Foley 5/325) 2 each PO Q6H PRN PRN Reason: Pain, Moderate (4-6) Last Admin: 08/30/19 09:31 Dose: 2 each Documented by: Magnesium Hydroxide (Milk Of Magnesia) 30 ml PO Q4H PRN PRN Reason: Constipation Last Admin: 08/30/19 09:31 Dose: 30 ml Documented by: Morphine Sulfate (Morphine) 4 mg IV Q1H PRN PRN Reason: Pain , Severe (7-10) Last Admin: 08/30/19 05:37 Dose: 4 mg Documented by: - Vital Signs Vital signs: Vital Signs Temp Pulse Resp BP Pulse Ox 98.2 F 97 H 16 132/80 99 08/30/19 03:05 08/30/19 03:05 08/30/19 03:05 08/30/19 03:05 08/30/19 03:05 Temp Pulse Resp BP Pulse Ox 98.0 F 80 18 109/69 99 08/30/19 08:05 08/30/19 08:05 08/30/19 08:05 08/30/19 08:05 08/30/19 08:05 - Physical Exam Cardiovascular: Regular rate Lungs: Positive: Clear to auscultation Abdomen: Positive: normal appearance, normal bowel sounds. Negative: distention, tenderness, guarding, rigidity Genitourinary (Female): Positive: normal external genitalia Results Result Diagrams: 08/30/19 03:18 08/30/19 03:18 Abnormal lab results 08/30/19 08/30/19 08/30/19 Range/Units 03:18 03:18 03:18 MCH 26 L (28-32) pg Seg Neutrophils % 72.8 H (40.0-70.0) % Sodium 134 L (137-145) mmol/L Potassium 3.2 L (3.6-5.0) mmol/L Chloride 97.9 L (98-107) mmol/L Creatinine 0.6 L (0.7-1.2) mg/dL Glucose 110 H (65-100) mg/dL HCG, Quant 2033 H (0-4) mIU/mL All other labs normal. Assessment and Plan right ectopic responding to methotrexate(patient refused surgery twice) Constipation: plan for milk of mag stable for d/c to home with outpatient follow up Thom RIGGINS
== END 2019-08-30 11:13 | disposition still patient (30) ==
LOC: ED 02:50 → OB 05:07 → INTOOBSV 05:07
PROVIDERS: ADMIT Obstetrics & Gynecology; ATTEND Obstetrics & Gynecology
DX: O00.90 Unspecified ectopic pregnancy without intrauterine pregnancy (principal); O99.619 Diseases of the digestive system complicating pregnancy, unspecified trimester; K59.00 Constipation, unspecified; O99.330 Smoking (tobacco) complicating pregnancy, unspecified trimester; F17.200 Nicotine dependence, unspecified, uncomplicated; Z88.1 Allergy status to other antibiotic agents; Z88.6 Allergy status to analgesic agent; Z91.013 Allergy to seafood; Z3A.00 Weeks of gestation of pregnancy not specified
CPT/HCPCS: 36415; 76801; 80048; 81001; 84702; 85025; 85610; 85730; 96374; 96375; 96376; 99291; G0378; J2270; J2405; J7030

== ENCOUNTER 2020-01-01 20:15 | Emergency (ER) | payer MEDICAID ==
--- NOTE | 2020-01-01 20:15 | Emergency Department Report ---
Blank Doc - Documentation Documentation: 34-year-old female that presents with right lower abdominal pain. This initial assessment/diagnostic orders/clinical plan/treatment(s) is/are subject to change based on patient's health status, clinical progression and re- assessment by fellow clinical providers in the ED. Further treatment and workup at subsequent clinical providers discretion. Patient/guardians urged not to elope from the ED as their condition may be serious if not clinically assessed and managed. Initial orders include: 1- Patient sent to [facility] for further evaluation and treatment 2- labs 3- UA
[2020-01-01 20:29] LABS: Basophils # (Auto) 0.1 K/mm3 (0.0-0.1); Basophils % (Auto) 0.9 % (0.0-1.8); Eosinophils # (Auto) 0.2 K/mm3 (0.0-0.4); Eosinophils % (Auto) 2.5 % (0.0-4.3); Hematocrit 36.5 % (30.3-42.9); Hemoglobin 12.5 gm/dl (10.1-14.3); Lymphocytes # (Auto) 2.3 K/mm3 (1.2-5.4); Lymphocytes % (Auto) 34.9 % (13.4-35.0); Mean Corpuscular HGB Conc 34 % (30-34); Mean Corpuscular Volume 79 fl (79-97); Monocytes # (Auto) 0.5 K/mm3 (0.0-0.8); Monocytes % (Auto) 8.4 % (0.0-7.3); Platelet Count 287 K/mm3 (140-440); Red Blood Count 4.63 M/mm3 (3.65-5.03); Red Cell Distribution Width 15.4 % (13.2-15.2)
[2020-01-01 20:44] LABS: Alanine Aminotransferase 15 units/L (7-56); Albumin 4.1 g/dL (3.9-5); Blood Urea Nitrogen 8 mg/dL (7-17); Calcium 9.1 mg/dL (8.4-10.2); Hemolysis Index 12
[2020-01-01 20:51] LABS: BUN/Creatinine Ratio 13
[2020-01-01 20:56] LABS: Bacteria,Urine 1+ /HPF (Negative); Bilirubin,Urine NEG (Negative); Blood,Urine MOD (Negative); Color,Urine Yellow (Yellow); Mucus,Urine FEW /HPF; Protein,Urine <15 mg/dL mg/dL (Negative); Urobilinogen,Urine < 2.0 mg/dL (<2.0)
[2020-01-01] MEDS ORDERED: ONDANSETRON 4 MG/2 ML INJ IV ONE (22:20)
[2020-01-01] MEDS ORDERED: MORPHINE 4 MG/1 ML INJ IV ONE (22:20)
[2020-01-01] MEDS ORDERED: dexAMETHasone 20 MG/5 ML VIAL IV ONE (23:39)
[2020-01-01] MEDS ORDERED: diphenhydrAMINE 50 MG/ML VIAL IV ONE (23:39)
--- NOTE | 2020-01-01 23:39 | Cat Scan Report ---
CT ABDOMEN AND PELVIS WITH CONTRAST INDICATION / CLINICAL INFORMATION: RLQ abdominal pain. TECHNIQUE: Axial CT images were obtained through the abdomen and pelvis after 100 cc Omnipaque 300 milligrams pe rcent IV contrast. All CT scans at this location are performed using CT dose reduction for ALARA by means of automated exposure control. COMPARISON: Exam is compared to previous ultrasound dated 08/30/2019 FINDINGS: LOWER CHEST: No significant abnormality. LIVER: No significant abnormality. GALLBLADDER: No significant abnormality. BILE DUCTS: No significant abnormality. PANCREAS: No significant abnormality. SPLEEN: No significant abnormality. ADRENALS: No significant abnormality. RIGHT KIDNEY and URETER: No significant abnormality. LEFT KIDNEY and URETER: No significant abnormality. STOMACH and SMALL BOWEL: No significant abnormality. COLON: No significant abnormality. APPENDIX: No significant abnormality. PERITONEUM: No free fluid. No free air. No fluid collection. LYMPH NODES: No significant adenopathy. AORTA and ARTERIES: No significant abnormality. IVC and VEINS: No significant abnormality. URINARY BLADDER: No significant abnormality. REPRODUCTIVE ORGANS: Complex tubular fluid-filled structures are present in the right adnexa measurin g 1.7 cm in diameter the overall size of the fluid-filled structures is 4.2 cm ADDITIONAL FINDINGS: None. SKELETAL SYSTEM: No significant abnormality. IMPRESSION: 1. Complex structures fluid-filled right adnexa worrisome for pelvic inflammatory disease. Recommend clinical correlation. Signer Name: Eddie Rosales MD Signed: 01/01/2020 11:34 PM Workstation Name: [id number]
--- NOTE | 2020-01-02 01:15 | Ultrasound Report ---
CLINICAL DATA: right adnexa mass TECHNICAL DATA: Ultrasound, pelvic (nonobstetric), real-time with image documentation; transabdominal and transvagina l imaging with Doppler was performed. FINDINGS: The uterus is of normal size and echogenicity. There are no uterine masses. Endometrial thickness is within normal limits. The right and left ovaries are of symmetric size and echogenicity. However, attention is directed to the right adnexa with complex mass is present measuring 4.8 x 3.4 x [address] raises concern of pelvic inflammatory disease. Doppler imaging demonstrates normal vascular flow to both ovaries. There is no significant quantity of free fluid dependently within the pelvis. IMPRESSION: Complex mass right adnexa pelvic inflammatory disease is a concern. Complex endometrioma or septated cyst could give a similar appearance GUIDELINES FOR IMAGING OF OVARIAN--ADNEXAL CYST: WOMEN OF REPRODUCTIVE AGE: 1. Cysts <=3 cm: Normal physiologic findings; at the discretion of the interpreting physician whether or not to describe them in the imaging report; do not need follow-up. 2. Cysts >3 and <=5 cm: Should be described in the imaging report with a statement that they are almo st certainly benign; do not need follow-up. 3. Cysts >5 and <=7 cm: Should be described in the imaging report with a statement that they are almo st certainly benign; yearly follow-up with US recommended. 4. Cysts >7 cm: Since these may be difficult to assess completely with US, further imaging with magne tic resonance (MR) or surgical evaluation should be considered. POSTMENOPAUSAL WOMEN: 1. Cysts <=1 cm: Are clinically inconsequential; at the discretion of the interpreting physician whet her or not to describe them in the imaging report; do not need follow-up. 2. Cysts >1 and <=7 cm: Should be described in the imaging report with statement that they are almost certainly benign; yearly follow-up, at least initially, with US recommended. Some practices may opt to increase the lower size threshold for follow-up from 1 cm to as high as 3 cm. One may opt to christiano nue follow-up annually or to decrease the frequency of follow-up once stability or decrease in size h as been confirmed. Cysts in the larger end of this range should still generally be followed on a regu lar basis. 3. Cysts >7 cm: Since these may be difficult to assess completely with US, further imaging with MR or surgical evaluation should be considered. Signer Name: Eddie Rosales MD Signed: 01/02/2020 1:11 AM Workstation Name: [id number]
[2020-01-02] MEDS ORDERED: AZITHROMYCIN 250 MG TAB PO ONE (01:27)
[2020-01-02] MEDS ORDERED: cefTRIAXone/NS 1 GM/50 ML 1 GM/50 ML BAG IV ONE (01:27)
[2020-01-02] MEDS ORDERED: MORPHINE 4 MG/1 ML INJ IV ONE (01:41)
[2020-01-02] MEDS ORDERED: METOCLOPRAMIDE 10 MG/2 ML INJ IV ONE (01:41)
--- NOTE | 2020-01-02 03:04 | Emergency Department Report ---
ED Abdominal Pain HPI - General Chief Complaint: Abdominal Pain Stated Complaint: ABD PAIN Time Seen by Provider: 01/01/20 20:15 Source: patient Mode of arrival: Ambulatory Limitations: No Limitations - History of Present Illness Initial Comments: Patient is a A4 34-year-old -Congolese female with a history of recurrent ovarian cysts presents to the ED with a complaint of acute onset persistent severe right lower quadrant pain with nausea and vomiting for the last 4 hours. Patient states the pain is worse and constant and gets worse with exertion or having a bowel movement or urination. Patient denies dysuria, urinary frequency and urgency, vaginal bleeding, vaginal discharge, low back pain, dizziness, syncope, fever, chills, cough, diarrhea, traumatic injury, chest pain or shortness of breath and headache. MD Complaint: abdominal pain (RLQ), other (Nausea and vomiting) -: Sudden, hour(s) (4) Location: RLQ, suprapubic Radiation: RLQ, suprapubic Migration to: no migration Severity scale (0 -10): 10 Quality: cramping, aching, sharp Consistency: constant Improves With: nothing Worsens With: bowel movement, movement Associated Symptoms: denies other symptoms, nausea, vomiting. denies: diarrhea, fever, chills, constipation, dysuria, hematemesis, hematochezia, melena, hematuria, anorexia, syncope, other - Related Data Previous Rx's Medication Instructions Recorded Last Taken Type oxyCODONE /ACETAMINOPHEN [Percocet 1 tab PO Q6HR PRN #20 tablet 08/22/19 Unknown Rx 5/325] Doxycycline Hyclate 100 mg PO Q12H #20 tablet. 01/02/20 Unknown Rx HYDROcodone/APAP 5-325 [[place] 1 each PO Q6HR PRN #12 tablet 01/02/20 Unknown Rx 5/325] Ibuprofen [Motrin] 800 mg PO Q8HR PRN #30 tablet 01/02/20 Unknown Rx Ondansetron [Zofran Odt] 4 mg PO Q6HR PRN #20 tab.rapdis 01/02/20 Unknown Rx metroNIDAZOLE [Flagyl] 500 mg PO Q12HR #20 tab 01/02/20 Unknown Rx Allergies Allergy/AdvReac Type Severity Reaction Status Date / Time ceftriaxone Allergy Hives Verified 01/30/19 09:25 Iodinated Contrast Media Allergy Itching Verified 01/01/20 23:54 ketorolac [From Toradol] Allergy Hives Verified 01/30/19 09:25 shellfish derived Allergy Anaphylaxis Verified 06/04/14 19:06 ED Review of Systems ROS: Stated complaint: ABD PAIN Other details as noted in HPI Constitutional: denies: chills, fever Eyes: denies: eye pain, eye discharge, vision change ENT: denies: ear pain, throat pain Respiratory: denies: cough, shortness of breath, wheezing Cardiovascular: denies: chest pain, palpitations Endocrine: no symptoms reported Gastrointestinal: abdominal pain (RLQ), nausea, vomiting. denies: diarrhea Genitourinary: denies: urgency, dysuria, discharge Musculoskeletal: denies: back pain, joint swelling, arthralgia Skin: denies: rash, lesions Neurological: denies: headache, weakness, paresthesias Psychiatric: denies: anxiety, depression Hematological/Lymphatic: denies: easy bleeding, easy bruising ED Past Medical Hx - Past Medical History Previous Medical History?: Yes Hx Hypertension: No Hx Congestive Heart Failure: No Hx Diabetes: No Hx Deep Vein Thrombosis: No Hx Renal Disease: No Hx Sickle Cell Disease: No Hx Seizures: No Hx Asthma: No Hx COPD: No Hx HIV: No Additional medical history: ovarian cyst - Surgical History Past Surgical History?: No - Social History Smoking Status: Never Smoker Substance Use Type: Alcohol - Medications Home Medications: Home Medications Medication Instructions Recorded Confirmed Last Taken Type oxyCODONE /ACETAMINOPHEN [Percocet 1 tab PO Q6HR PRN #20 tablet 08/22/19 08/30/19 Unknown Rx 5/325] Doxycycline Hyclate 100 mg PO Q12H #20 tablet.dr 01/02/20 Unknown Rx HYDROcodone/APAP 5-325 [[place] 1 each PO Q6HR PRN #12 tablet 01/02/20 Unknown Rx 5/325] Ibuprofen [Motrin] 800 mg PO Q8HR PRN #30 tablet 01/02/20 Unknown Rx Ondansetron [Zofran Odt] 4 mg PO Q6HR PRN #20 tab.rapdis 01/02/20 Unknown Rx metroNIDAZOLE [Flagyl] 500 mg PO Q12HR #20 tab 01/02/20 Unknown Rx ED Physical Exam - General Limitations: No Limitations General appearance: alert, in no apparent distress - Head Head exam: Present: atraumatic, normocephalic, normal inspection - Eye Eye exam: Present: normal appearance, PERRL, EOMI Pupils: Present: normal accommodation - ENT ENT exam: Present: normal exam, normal orophraynx, mucous membranes moist, TM's normal bilaterally, normal external ear exam - Neck Neck exam: Present: normal inspection, full ROM - Respiratory Respiratory exam: Present: normal lung sounds bilaterally. Absent: respiratory distress, wheezes, rhonchi, chest wall tenderness, accessory muscle use, prolonged expiratory - Cardiovascular Cardiovascular Exam: Present: regular rate, normal rhythm, normal heart sounds. Absent: systolic murmur, diastolic murmur, rubs, gallop - GI/Abdominal GI/Abdominal exam: Present: soft, tenderness (Palpable right lower quadrant tenderness with guarding), guarding, normal bowel sounds. Absent: rebound, hyperactive bowel sounds, hypoactive bowel sounds, organomegaly - External exam: Present: normal external exam Speculum exam: Present: vaginal discharge, cervical discharge Bi-manual exam: Present: cervical motion tendernes, adnexal tenderness (Right adnexal tenderness), uterine tenderness, other (Female RN safety administrator present Ms. Brumfield) - Extremities Exam Extremities exam: Present: normal inspection, full ROM, normal capillary refill - Back Exam Back exam: Present: normal inspection, full ROM. Absent: tenderness, CVA tenderness (R), CVA tenderness (L), muscle spasm, paraspinal tenderness, vertebral tenderness - Neurological Exam Neurological exam: Present: alert, oriented X3, CN II-XII intact, normal gait, reflexes normal - Psychiatric Psychiatric exam: Present: normal affect, normal mood - Skin Skin exam: Present: warm, dry, intact, normal color. Absent: rash ED Course Vital Signs 01/01/20 20:16 Temperature 97.8 F Pulse Rate 95 H Respiratory 18 Rate Blood Pressure 128/87 O2 Sat by Pulse 99 Oximetry ED Medical Decision Making - Lab Data Result diagrams: 01/01/20 20:19 01/01/20 20:19 - Radiology Data Radiology results: report reviewed, image reviewed Findings [facility] [address] [place] [address] Ultrasound Report Signed Patient: AIDA BLAIR MR# : [id number] : 1985 Acct:[id number] Age/Sex: 34 / F ADM Date: 01/01/20 Loc: ED Attending Dr: Ordering Physician: BO GRACIA Date of Service: 01/01/20 Procedure(s): US pelvic complete Accession Number(s): [id number] cc: BO GRACIA CLINICAL DATA: right adnexa mass TECHNICAL DATA: Ultrasound, pelvic (nonobstetric), real-time with image documentation; transabdominal and transvaginal imaging with Doppler was performed. FINDINGS: The uterus is of normal size and echogenicity. There are no uterine masses. Endometrial thickness is within normal limits. The right and left ovaries are of symmetric size and echogenicity. However, attention is directed to the right adnexa with complex mass is present measuring 4.8 x 3.4 x [address] raises concern of pelvic inflammatory disease. Doppler imaging demonstrates normal vascular flow to both ovaries. There is no significant quantity of free fluid dependently within the pelvis. IMPRESSION: Complex mass right adnexa pelvic inflammatory disease is a concern. Complex endometrioma or septated cyst could give a similar appearance GUIDELINES FOR IMAGING OF OVARIAN--ADNEXAL CYST: WOMEN OF REPRODUCTIVE AGE: 1. Cysts <=3 cm: Normal physiologic findings; at the discretion of the interpreting physician whether or not to describe them in the imaging report; do not need follow-up. 2. Cysts >3 and <=5 cm: Should be described in the imaging report with a statement that they are almost certainly benign; do not need follow-up. 3. Cysts >5 and <=7 cm: Should be described in the imaging report with a statement that they are almost certainly benign; yearly follow-up with US recommended. 4. Cysts >7 cm: Since these may be difficult to assess completely with US, further imaging with magnetic resonance (MR) or surgical evaluation should be considered. POSTMENOPAUSAL WOMEN: 1. Cysts <=1 cm: Are clinically inconsequential; at the discretion of the int erpreting physician whether or not to describe them in the imaging report; do not need follow-up. 2. Cysts >1 and <=7 cm: Should be described in the imaging report with statement that they are almost certainly benign; yearly follow-up, at least initially, with US recommended. Some practices may opt to increase the lower size threshold for follow-up from 1 cm to as high as 3 cm. One may opt to continue follow-up annually or to decrease the frequency of follow-up once stability or decrease in size has been confirmed. Cysts in the larger end of this range should still generally be followed on a regular basis. 3. Cysts >7 cm: Since these may be difficult to assess completely with US, further imaging with MR or surgical evaluation should be considered. Signer Name: Eddie Rosales MD Signed: 01/02/2020 1:11 AM Workstation Name: [id number] Transcribed By: WG Dictated By: Eddie Rosales MD Electronically Authenticated By: Eddie Rosales MD Signed Date/Time: 01/02/20110 DD/ 6 TD/TT: Findings [facility] [address] [place] [address] Cat Scan Report Signed Patient: AIDA BLAIR MR# : [id number] : 1985 Acct:[id number] Age/Sex: 34 / F ADM Date: 01/01/20 Loc: ED Attending Dr: Ordering Physician: BO GRACIA Date of Service: 01/01/20 Procedure(s): CT abdomen pelvis w con Accession Number(s): [id number] cc: BO GRACIA CT ABDOMEN AND PELVIS WITH CONTRAST INDICATION / CLINICAL INFORMATION: RLQ abdominal pain. TECHNIQUE: Axial CT images were obtained through the abdomen and pelvis after 100 cc Omnipaque 300 milligrams percent IV contrast. All CT scans at this location are performed using CT dose reduction for ALARA by means of automated exposure control. COMPARISON: Exam is compared to previous ultrasound dated 08/30/2019 FINDINGS: LOWER CHEST: No significant abnormality. LIVER: No significant abnormality. GALLBLADDER: No significant abnormality. BILE DUCTS: No significant abnormality. PANCREAS: No significant abnormality. SPLEEN: No significant abnormality. ADRENALS: No significant abnormality. RIGHT KIDNEY and URETER: No significant abnormality. LEFT KIDNEY and URETER: No significant abnormality. STOMACH and SMALL BOWEL: No significant abnormality. COLON: No significant abnormality. APPENDIX: No significant abnormality. PERITONEUM: No free fluid. No free air. No fluid collection. LYMPH NODES: No significant adenopathy. AORTA and ARTERIES: No significant abnormality. IVC and VEINS: No significant abnormality. URINARY BLADDER: No significant abnormality. REPRODUCTIVE ORGANS: Complex tubular fluid-filled structures are present in the right adnexa measuring 1.7 cm in diameter the overall size of the fluid-filled structures is 4.2 cm ADDITIONAL FINDINGS: None. SKELETAL SYSTEM: No significant abnormality. IMPRESSION: 1. Complex structures fluid-filled right adnexa worrisome for pelvic inflammatory disease. Recommend clinical correlation. Signer Name: Eddie Rosales MD Signed: 01/01/2020 11:34 PM Workstation Name: [id number] Transcribed By: WG Dictated By: Eddie Rosales MD Electronically Authenticated By: Eddie Rosales MD Signed Date/Time: 01/01/20 233 DD/ 29 TD/TT: - Medical Decision Making This is a A4 34-year-old -Congolese female with a history of recurrent ovarian cysts presents to the ED with a complaint of acute onset persistent severe right lower quadrant pain with nausea and vomiting for the last 4 hours. Patient states the pain is worse and constant and gets worse with exertion or having a bowel movement or urination. In the ED, patient is alert and oriented x3 and is not in distress but appears to be in pain. Patient was treated for pain in the ED and also given normal saline 1 L IV bolus x1, and also given antiemetics. Abdominal pelvis CT scan with contrast showed a complex structures fluid-filled right adnexa worrisome for pelvic inflammatory disease. Transvaginal ultrasound also showed right adnexa with complex mass present measuring 4.8 x 3.4 x 3.2 cm, and no significant quantity of free fluid dependently within the pelvis. Patient was treated also in the ED with antibiotic empirically for PID based on the pelvic exam finding of cervical motion tenderness and right adnexal tenderness. On reevaluation, patient's pain is well controlled medications. Patient was discharged home on pain medications and advised to follow-up with her [employer] physician Dr. Jack in the next 24 to 48 hours for reevaluation. Patient was also advised to return to the ED immediately if symptoms get worse. - Differential Diagnosis Appendicitis; Ovarian cyst; Dermoid cyst; Fibroids; Kidney stones; UTI Critical care attestation.: If time is entered above; I have spent that time in minutes in the direct care of this critically ill patient, excluding procedure time. ED Disposition Clinical Impression: Acute abdominal pain in right lower quadrant, Nausea and vomiting in adult, Complex cyst of right ovary, Bacterial vaginosis, Acute pelvic inflammatory disease (PID) Disposition: TO HOME OR SELFCARE Is pt being admited?: No Does the pt Need Aspirin: No Condition: Stable Instructions: Abdominal Pain (ED), Bacterial Vaginosis (ED), Pelvic Inflammatory Disease (ED), Ovarian Cyst (ED) Additional Instructions: Continue complete pelvic rest, take medication as needed for pain. Follow-up with your [employer] physician Dr. Jack today for further evaluation. Return to the ED immediately if symptoms get worse. Prescriptions: Doxycycline Hyclate 100 mg PO Q12H #20 tablet. metroNIDAZOLE [Flagyl] 500 mg PO Q12HR #20 tab Ibuprofen [Motrin] 800 mg PO Q8HR PRN #30 tablet PRN Reason: Pain , Severe (7-10) HYDROcodone/APAP 5-325 [[place] 5/325] 1 each PO Q6HR PRN #12 tablet PRN Reason: Pain Ondansetron [Zofran Odt] 4 mg PO Q6HR PRN #20 tab.rapdis PRN Reason: Nausea Referrals: SERVANDO JACK MD [Staff Physician] - MARC Forms: STI Treatment and Prevention Time of Disposition: 03:06 Print Language: CITIZEN OF [place]
[2020-01-02 04:05] VITALS: BP 124/82
== END 2020-01-02 03:25 | disposition home or self-care (01) ==
LOC: ED 20:15
DX: N83.291 Other ovarian cyst, right side (principal); N73.8 Other specified female pelvic inflammatory diseases; N76.0 Acute vaginitis; B96.89 Other specified bacterial agents as the cause of diseases classified elsewhere; Z79.899 Other long term (current) drug therapy; Z88.1 Allergy status to other antibiotic agents; Z88.6 Allergy status to analgesic agent; Z91.013 Allergy to seafood; Z91.041 Radiographic dye allergy status
CPT/HCPCS: 36415; 74177; 76856; 80053; 81001; 83690; 84703; 85025; 87210; 87591; 96365; 96375; 96376; 99285; J0696; J1100; J1200; J2270; J2405; J2765; Q9967

== ENCOUNTER 2020-04-11 11:11 | Emergency (ER) | payer MEDICAID ==
--- NOTE | 2020-04-11 11:52 | Event Note ---
ED Screening Note ED Screening Note: right flank pain that began two days states she is having a menstrual cycle that began three days ago and ended today no dysuria no fever N and 2 episodes of vomiting no diarrhea PMHx nnone allergy: ceftriaxone, toradol, IV contrast This initial assessment/diagnostic orders/clinical plan/treatment(s) is/are subject to change based on patients health status, clinical progression and re- assessment by fellow clinical providers in the ED. Further treatment and workup at subsequent clinical providers discretion. Patient/guardian urged not to elope from the ED as their condition may be serious if not clinically assessed and managed. Initial orders include: labs, UA, CT
[2020-04-11 12:36] LABS: Basophils % (Auto) 0.6 % (0.0-1.8); Eosinophils # (Auto) 0.1 K/mm3 (0.0-0.4); Hematocrit 41.5 % (30.3-42.9); Hemoglobin 13.4 gm/dl (10.1-14.3); Lymphocytes # (Auto) 1.7 K/mm3 (1.2-5.4); Lymphocytes % (Auto) 31.2 % (13.4-35.0); Mean Corpuscular HGB Conc 32 % (30-34); Mean Corpuscular Volume 82 fl (79-97); Monocytes # (Auto) 0.5 K/mm3 (0.0-0.8); Monocytes % (Auto) 9.5 % (0.0-7.3); Platelet Count 312 K/mm3 (140-440); Red Blood Count 5.08 M/mm3 (3.65-5.03); Red Cell Distribution Width 14.2 % (13.2-15.2)
[2020-04-11 12:49] LABS: Alanine Aminotransferase 16 units/L (7-56); Albumin 4.1 g/dL (3.9-5); Blood Urea Nitrogen 9 mg/dL (7-17); Calcium 9.1 mg/dL (8.4-10.2); Hemolysis Index 11
[2020-04-11 12:50] LABS: Bilirubin,Urine NEG (Negative); Blood,Urine MOD (Negative); Color,Urine Yellow (Yellow); Mucus,Urine FEW /HPF; Protein,Urine <15 mg/dL mg/dL (Negative); Urobilinogen,Urine < 2.0 mg/dL (<2.0)
[2020-04-11 13:05] LABS: BUN/Creatinine Ratio 13
--- NOTE | 2020-04-11 13:22 | Cat Scan Report ---
CT abdomen pelvis wo con INDICATION: right flank pain. COMPARISON: None TECHNIQUE: Abdominal and pelvic CT exam performed. All CT scans at this location are performed using CT dose reduction for ALARA by means of automated exposure control. FINDINGS: CT ABDOMEN and PELVIS: Lung Bases: No significant abnormality. Liver: No significant abnormality. Biliary: No significant abnormality. Spleen: No significant abnormality. Pancreas: No significant abnormality. Adrenals: No significant abnormality. Kidneys: No significant abnormality. Lymphatics: No lymphadenopathy. Vasculature: No significant abnormality. Bowel: No significant abnormality. Normal appendix. Pelvis: No significant abnormality. Osseous Structures: No aggressive osseous lesion. Additional Findings: None IMPRESSION: 1. No significant abnormality of the abdomen or pelvis. Signer Name: Jovanny Merritt MD Signed: 04/11/2020 1:18 PM Workstation Name: [id number]
[2020-04-11 14:39] VITALS: BP 138/91
--- NOTE | 2020-04-11 14:48 | Emergency Department Report ---
ED General Adult HPI - General Chief complaint: Abdominal Pain Stated complaint: EXTREME LOWER BACK PAIN Time Seen by Provider: 04/11/20 11:51 Source: patient Mode of arrival: Ambulatory Limitations: No Limitations - History of Present Illness Initial comments: 34-year-old -Filipino female presents to the emergency room for lower back pain that started 2 days ago. Patient states that she has had no trauma. No dysuria no nausea no vomiting. She states that she recently finished her menstrual cycle yesterday. Patient reports a past medical history of ectopic and August 2018. She denies any fever no chills. She states that she has been taking Tylenol which does not help with her pain. Patient reports she took an ibuprofen x1 and then continue with the Tylenol. Patient states applying pressure helps relieve her pain. She denies any radiation of pain down her lower extremity or buttocks. 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 Onset/Timin -: days(s) Location: back (Lower back right.) Severity scale (0 -10): 9 Quality: stabbing, aching Improves with: other (Client pressure to the right side of her sciatica notch) Worsens with: none Treatments Prior to Arrival: other (Tylenol) - Related Data Previous Rx's Medication Instructions Recorded Last Taken Type oxyCODONE /ACETAMINOPHEN [Percocet 1 tab PO Q6HR PRN #20 tablet 08/22/19 Unknown Rx 5/325] Doxycycline Hyclate 100 mg PO Q12H #20 tablet. 01/02/20 Unknown Rx Fluconazole (Nf) [Diflucan TAB] 150 mg PO ONCE #2 tablet 01/02/20 Unknown Rx HYDROcodone/APAP 5-325 [[place] 1 each PO Q6HR PRN #12 tablet 01/02/20 Unknown Rx 5/325] Ibuprofen [Motrin] 800 mg PO Q8HR PRN #30 tablet 01/02/20 Unknown Rx Ondansetron [Zofran Odt] 4 mg PO Q6HR PRN #20 tab.rapdis 01/02/20 Unknown Rx metroNIDAZOLE [Flagyl] 500 mg PO Q12HR #20 tab 01/02/20 Unknown Rx Allergies Allergy/AdvReac Type Severity Reaction Status Date / Time ceftriaxone Allergy Hives Verified 01/30/19 09:25 Iodinated Contrast Media Allergy Itching Verified 01/01/20 23:54 ketorolac [From Toradol] Allergy Hives Verified 01/30/19 09:25 shellfish derived Allergy Anaphylaxis Verified 06/04/14 19:06 ED Review of Systems ROS: Stated complaint: EXTREME LOWER BACK PAIN Other details as noted in HPI Comment: All other systems reviewed and negative ED Past Medical Hx - Past Medical History Previous Medical History?: Yes Hx Hypertension: No Hx Congestive Heart Failure: No Hx Diabetes: No Hx Deep Vein Thrombosis: No Hx Renal Disease: No Hx Sickle Cell Disease: No Hx Seizures: No Hx Asthma: No Hx COPD: No Hx HIV: No Additional medical history: ovarian cyst - Surgical History Additional Surgical History: ectopic-august 2018 - Social History Smoking Status: Current Every Day Smoker Substance Use Type: None - Medications Home Medications: Home Medications Medication Instructions Recorded Confirmed Last Taken Type oxyCODONE /ACETAMINOPHEN [Percocet 1 tab PO Q6HR PRN #20 tablet 08/22/19 08/30/19 Unknown Rx 5/325] Doxycycline Hyclate 100 mg PO Q12H #20 tablet. 01/02/20 Unknown Rx Fluconazole (Nf) [Diflucan TAB] 150 mg PO ONCE #2 tablet 01/02/20 Unknown Rx HYDROcodone/APAP 5-325 [[place] 1 each PO Q6HR PRN #12 tablet 01/02/20 Unknown Rx 5/325] Ibuprofen [Motrin] 800 mg PO Q8HR PRN #30 tablet 01/02/20 Unknown Rx Ondansetron [Zofran Odt] 4 mg PO Q6HR PRN #20 tab.rapdis 01/02/20 Unknown Rx metroNIDAZOLE [Flagyl] 500 mg PO Q12HR #20 tab 01/02/20 Unknown Rx ED Physical Exam - General Limitations: No Limitations General appearance: alert, in no apparent distress - Head Head exam: Present: atraumatic, normocephalic - Eye Eye exam: Present: normal appearance - Respiratory Respiratory exam: Absent: accessory muscle use - Extremities Exam Extremities exam: Present: normal inspection, full ROM - Back Exam Back exam: Present: full ROM - Expanded Back Exam Expanded Back exam: Sciatic Notch Tenderness: Right, Positive Straight Leg Raise: Right - Neurological Exam Neurological exam: Present: alert, oriented X3, normal gait - Psychiatric Psychiatric exam: Present: normal affect, normal mood - Skin Skin exam: Present: warm, dry, intact, normal color. Absent: rash ED Medical Decision Making - Lab Data Result diagrams: 04/11/20 12:14 04/11/20 12:14 Laboratory Tests 04/11/20 04/11/20 04/11/20 12:12 12:14 12:14 WBC 5.3 RBC 5.08 H Hgb 13.4 Hct 41.5 MCV 82 MCH 26 L MCHC 32 RDW 14.2 Plt Count 312 Lymph % (Auto) 31.2 [place] % (Auto) 9.5 H Eos % (Auto) 2.0 Baso % (Auto) 0.6 Lymph # (Auto) 1.7 [place] # (Auto) 0.5 Eos # (Auto) 0.1 Baso # (Auto) 0.0 Seg Neutrophils % 56.7 Seg Neutrophils # 3.0 Sodium 135 L Potassium 4.4 Chloride 103.1 Carbon Dioxide 27 Anion Gap 9 BUN 9 Creatinine 0.7 Estimated GFR > 60 BUN/Creatinine Ratio 13 Glucose 84 Calcium 9.1 Total Bilirubin 0.30 AST 15 ALT 16 Alkaline Phosphatase 72 Total Protein 7.5 Albumin 4.1 Albumin/Globulin Ratio 1.2 HCG, Qual Urine Color Yellow Urine Turbidity Clear Urine pH 6.0 Ur Specific [place] 1.020 Urine Protein <15 mg/dl Urine Glucose (UA) Neg Urine Ketones Neg Urine Blood Mod Urine Nitrite Neg Urine Bilirubin Neg Urine Urobilinogen < 2.0 Ur Leukocyte Esterase Neg Urine WBC (Auto) 2.0 Urine RBC (Auto) 16.0 U Epithel Cells (Auto) 4.0 Urine Mucus Few 04/11/20 12:14 WBC RBC Hgb Hct MCV MCH MCHC RDW Plt Count Lymph % (Auto) [place] % (Auto) Eos % (Auto) Baso % (Auto) Lymph # (Auto) [place] # (Auto) Eos # (Auto) Baso # (Auto) Seg Neutrophils % Seg Neutrophils # Sodium Potassium Chloride Carbon Dioxide Anion Gap BUN Creatinine Estimated GFR BUN/Creatinine Ratio Glucose Calcium Total Bilirubin AST ALT Alkaline Phosphatase Total Protein Albumin Albumin/Globulin Ratio HCG, Qual Negative Urine Color Urine Turbidity Urine pH Ur Specific [place] Urine Protein Urine Glucose (UA) Urine Ketones Urine Blood Urine Nitrite Urine Bilirubin Urine Urobilinogen Ur Leukocyte Esterase Urine WBC (Auto) Urine RBC (Auto) U Epithel Cells (Auto) Urine Mucus - Radiology Data Radiology results: report reviewed [facility] [address] [place] [address] Cat Scan Report Signed Patient: AIDA BLAIR MR# : [id number] : 1985 Acct:[id number] Age/Sex: 34 / F ADM Date: 04/11/20 Loc: ED Attending Dr: Ordering Physician: BO MELGAR Date of Service: 04/11/20 Procedure(s): CT abdomen pelvis wo con Accession Number(s): [id number] cc: BO MELGAR CT abdomen pelvis wo con INDICATION: right flank pain. COMPARISON: None TECHNIQUE: Abdominal and pelvic CT exam performed. All CT scans at this location are performed using CT dose reduction for ALARA by means of automated exposure control. FINDINGS: CT ABDOMEN and PELVIS: Lung Bases: No significant abnormality. Liver: No significant abnormality. Biliary: No significant abnormality. Spleen: No significant abnormality. Pancreas: No significant abnormality. Adrenals: No significant abnormality. Kidneys: No significant abnormality. Lymphatics: No lymphadenopathy. Vasculature: No significant abnormality. Bowel: No significant abnormality. Normal appendix. Pelvis: No significant abnormality. Osseous Structures: No aggressive osseous lesion. Additional Findings: None IMPRESSION: 1. No significant abnormality of the abdomen or pelvis. Signer Name: Jovanny Merritt MD Signed: 04/11/2020 1:18 PM Workstation Name: [id number] Transcribed By: CHRISTIANO Dictated By: Jovanny Merritt MD Electronically Authenticated By: Jovanny Merritt MD Signed Date/Time: 04/11/20 1318 DD/ 1313 TD/TT: - Medical Decision Making 34-year-old -Filipino female presents to the emergency room for lower back pain that started 2 days ago. Patient states that she has had no trauma. No dysuria no nausea no vomiting. She states that she recently finished her menstrual cycle yesterday. Patient reports a past medical history of ectopic and August 2018. She denies any fever no chills. She states that she has been taking Tylenol which does not help with her pain. Patient reports she took an ibuprofen x1 and then continue with the Tylenol. Patient states applying pressure helps relieve her pain. She denies any radiation of pain down her lower extremity or buttocks. 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 CT of abdomen within normal limits labs are stable. I recommend patient to try ibuprofen. And to follow-up with her APPLICATION DEVELOPER MANAGER and a referral to our primary care provider. Critical care attestation.: If time is entered above; I have spent that time in minutes in the direct care of this critically ill patient, excluding procedure time. ED Disposition Clinical Impression: Acute back pain Disposition: DC- TO HOME OR SELFCARE Is pt being admited?: No Does the pt Need Aspirin: No Condition: Stable Instructions: Abdominal Pain (ED), Acute Back Pain, Adult Additional Instructions: Labs are stable CT scan is negative I recommend for you to follow-up with a primary care provider or back specialist. I have listed their information below for your convenience. Referrals: PRIMARY CARE, [Primary Care Provider] - 3-5 Days DAVID WALKER II, MD [Staff Physician] - 3-5 Days SIERRA ROTHMAN MD [Staff Physician] - 3-5 Days Forms: Work/School Release Form(ED)
== END 2020-04-11 15:15 | disposition home or self-care (01) ==
LOC: ED 11:11
DX: M54.5 Low back pain (principal); F17.200 Nicotine dependence, unspecified, uncomplicated; Z79.899 Other long term (current) drug therapy; Z88.8 Allergy status to other drugs, medicaments and biological substances; Z91.041 Radiographic dye allergy status; Z98.890 Other specified postprocedural states; Z91.013 Allergy to seafood
CPT/HCPCS: 36415; 74176; 80053; 81001; 84703; 85025

== ENCOUNTER 2020-11-01 18:01 | Emergency (ER) | payer MEDICAID ==
[2020-11-01 18:09] VITALS: BP 138/92
[2020-11-01 18:54] LABS: HCG Qualitative,Urine Negative (Negative)
[2020-11-01 18:55] LABS: Bacteria,Urine 1+ /HPF (Negative); Bilirubin,Urine NEG (Negative); Blood,Urine LG (Negative); Color,Urine Yellow (Yellow); Mucus,Urine 2+ /HPF; Protein,Urine <15 mg/dL mg/dL (Negative); Urobilinogen,Urine < 2.0 mg/dL (<2.0)
--- NOTE | 2020-11-01 19:44 | Emergency Department Report ---
ED General Adult HPI - General Chief complaint: Abdominal Pain Stated complaint: ABDOMINAL PAIN Time Seen by Provider: 11/01/20 18:52 Source: patient Mode of arrival: Ambulatory Limitations: No Limitations - History of Present Illness Initial comments: Patient is a 35-year-old female presents emergency room complaints of suprapubic abdominal cramping that began 2 days ago. Patient states that she is concerned because she has a history of ectopic . She states her last menstrual cycle was 10/12/2020. She states that she also has a history of ovarian cyst. She denies any nausea, vomiting, diarrhea, fever, hematochezia, melena, hematemesis, vaginal discharge, vaginal bleeding, vaginal irritation, back pain, urinary symptoms. She has an allergy to ceftriaxone contrast dye, Toradol, shellfish. - Related Data Previous Rx's Medication Instructions Recorded Last Taken Type oxyCODONE /ACETAMINOPHEN [Percocet 1 tab PO Q6HR PRN #20 tablet 08/22/19 Unknown Rx 5/325] Doxycycline Hyclate 100 mg PO Q12H #20 tablet. 01/02/20 Unknown Rx Fluconazole (Nf) [Diflucan TAB] 150 mg PO ONCE #2 tablet 01/02/20 Unknown Rx HYDROcodone/APAP 5-325 [[place] 1 each PO Q6HR PRN #12 tablet 01/02/20 Unknown Rx 5/325] Ibuprofen [Motrin] 800 mg PO Q8HR PRN #30 tablet 01/02/20 Unknown Rx Ondansetron [Zofran Odt] 4 mg PO Q6HR PRN #20 tab.rapdis 01/02/20 Unknown Rx metroNIDAZOLE [Flagyl] 500 mg PO Q12HR #20 tab 01/02/20 Unknown Rx Allergies Allergy/AdvReac Type Severity Reaction Status Date / Time ceftriaxone Allergy Hives Verified 11/01/20 18:07 Iodinated Contrast Media Allergy Itching Verified 11/01/20 18:07 ketorolac [From Toradol] Allergy Hives Verified 11/01/20 18:07 shellfish derived Allergy Anaphylaxis Verified 11/01/20 18:07 ED Review of Systems ROS: Stated complaint: ABDOMINAL PAIN Other details as noted in HPI Comment: All other systems reviewed and negative ED Past Medical Hx - Past Medical History Hx Hypertension: No Hx Congestive Heart Failure: No Hx Diabetes: No Hx Deep Vein Thrombosis: No Hx Renal Disease: No Hx Sickle Cell Disease: No Hx Seizures: No Hx Asthma: No Hx COPD: No Hx HIV: No Additional medical history: ovarian cyst - Surgical History Additional Surgical History: -august 2018 - Social History Smoking Status: Never Smoker Substance Use Type: None - Medications Home Medications: Home Medications Medication Instructions Recorded Confirmed Last Taken Type oxyCODONE /ACETAMINOPHEN [Percocet 1 tab PO Q6HR PRN #20 tablet 08/22/19 08/30/19 Unknown Rx 5/325] Doxycycline Hyclate 100 mg PO Q12H #20 tablet. 01/02/20 Unknown Rx Fluconazole (Nf) [Diflucan TAB] 150 mg PO ONCE #2 tablet 01/02/20 Unknown Rx HYDROcodone/APAP 5-325 [[place] 1 each PO Q6HR PRN #12 tablet 01/02/20 Unknown Rx 5/325] Ibuprofen [Motrin] 800 mg PO Q8HR PRN #30 tablet 01/02/20 Unknown Rx Ondansetron [Zofran Odt] 4 mg PO Q6HR PRN #20 tab.rapdis 01/02/20 Unknown Rx metroNIDAZOLE [Flagyl] 500 mg PO Q12HR #20 tab 01/02/20 Unknown Rx ED Physical Exam - General Limitations: No Limitations General appearance: alert, in no apparent distress - Head Head exam: Present: atraumatic, normocephalic - Eye Eye exam: Present: normal appearance - ENT ENT exam: Present: mucous membranes moist - Respiratory Respiratory exam: Present: normal lung sounds bilaterally. Absent: respiratory distress, wheezes, rales, rhonchi, stridor, chest wall tenderness, accessory muscle use, decreased breath sounds, prolonged expiratory - Cardiovascular Cardiovascular Exam: Present: regular rate, normal rhythm, normal heart sounds. Absent: systolic murmur, diastolic murmur, rubs, gallop - GI/Abdominal GI/Abdominal exam: Present: soft, normal bowel sounds. Absent: distended, tenderness, guarding, rebound, rigid - Neurological Exam Neurological exam: Present: alert, oriented X3 - Psychiatric Psychiatric exam: Present: normal affect, normal mood - Skin Skin exam: Present: warm, dry, intact ED Course Vital Signs 11/01/20 18:08 Temperature 98.5 F Pulse Rate 93 H Respiratory 20 Rate Blood Pressure 138/92 O2 Sat by Pulse 99 Oximetry ED Medical Decision Making - Lab Data Result diagrams: 11/01/20 19:38 11/01/20 19:38 Lab Results 11/01/20 11/01/20 11/01/20 Range/Units 19:38 19:38 19:38 WBC 7.8 (4.5-11.0) K/mm3 RBC 4.90 (3.65-5.03) M/mm3 Hgb 12.8 (10.1-14.3) gm/dl Hct 38.9 (30.3-42.9) % MCV 79 (79-97) fl MCH 26 L (28-32) pg MCHC 33 (30-34) % RDW 14.4 (13.2-15.2) % Plt Count 259 (140-440) K/mm3 Lymph % (Auto) 26.6 (13.4-35.0) % [place] % (Auto) 7.9 H (0.0-7.3) % Eos % (Auto) 1.4 (0.0-4.3) % Baso % (Auto) 0.7 (0.0-1.8) % Lymph # (Auto) 2.1 (1.2-5.4) K/mm3 [place] # (Auto) 0.6 (0.0-0.8) K/mm3 Eos # (Auto) 0.1 (0.0-0.4) K/mm3 Baso # (Auto) 0.1 (0.0-0.1) K/mm3 Seg Neutrophils % 63.4 (40.0-70.0) % Seg Neutrophils # 4.9 (1.8-7.7) K/mm3 Sodium 138 (137-145) mmol/L Potassium 4.2 (3.6-5.0) mmol/L Chloride 102.8 (98-107) mmol/L Carbon Dioxide 25 (22-30) mmol/L Anion Gap 14 mmol/L BUN 10 (7-17) mg/dL Creatinine 0.6 (0.6-1.2) mg/dL Estimated GFR > 60 ml/min BUN/Creatinine Ratio 17 % Glucose 79 (65-100) mg/dL Calcium 9.0 (8.4-10.2) mg/dL Total Bilirubin 0.30 (0.1-1.2) mg/dL AST 14 (5-40) units/L ALT 14 (7-56) units/L Alkaline Phosphatase 75 (35-129) units/L Total Protein 7.2 (6.3-8.2) g/dL Albumin 4.2 (3.9-5) g/dL Albumin/Globulin Ratio 1.4 % HCG, Quant < 2 (0-4) mIU/mL Urine Color (Yellow) Urine Turbidity (Clear) Urine pH (5.0-7.0) Ur Specific [place] (1.003-1.030) Urine Protein (Negative) mg/dL Urine Glucose (UA) (Negative) mg/dL Urine Ketones (Negative) mg/dL Urine Blood (Negative) Urine Nitrite (Negative) Ur Reducing Substances Urine Bilirubin (Negative) Urine Ictotest Urine Urobilinogen (<2.0) mg/dL Ur Leukocyte Esterase (Negative) Urine WBC (Auto) (0.0-6.0) /HPF Urine RBC (Auto) (0.0-6.0) /HPF U Epithel Cells (Auto) (0-13.0) /HPF Urine Bacteria (Auto) (Negative) /HPF Urine Mucus /HPF Urine HCG, Qual (Negative) 11/01/20 Range/Units Unknown WBC (4.5-11.0) K/mm3 RBC (3.65-5.03) M/mm3 Hgb (10.1-14.3) gm/dl Hct (30.3-42.9) % MCV (79-97) fl MCH (28-32) pg MCHC (30-34) % RDW (13.2-15.2) % Plt Count (140-440) K/mm3 Lymph % (Auto) (13.4-35.0) % [place] % (Auto) (0.0-7.3) % Eos % (Auto) (0.0-4.3) % Baso % (Auto) (0.0-1.8) % Lymph # (Auto) (1.2-5.4) K/mm3 [place] # (Auto) (0.0-0.8) K/mm3 Eos # (Auto) (0.0-0.4) K/mm3 Baso # (Auto) (0.0-0.1) K/mm3 Seg Neutrophils % (40.0-70.0) % Seg Neutrophils # (1.8-7.7) K/mm3 Sodium (137-145) mmol/L Potassium (3.6-5.0) mmol/L Chloride (98-107) mmol/L Carbon Dioxide (22-30) mmol/L Anion Gap mmol/L BUN (7-17) mg/dL Creatinine (0.6-1.2) mg/dL Estimated GFR ml/min BUN/Creatinine Ratio % Glucose (65-100) mg/dL Calcium (8.4-10.2) mg/dL Total Bilirubin (0.1-1.2) mg/dL AST (5-40) units/L ALT (7-56) units/L Alkaline Phosphatase (35-129) units/L Total Protein (6.3-8.2) g/dL Albumin (3.9-5) g/dL Albumin/Globulin Ratio % HCG, Quant (0-4) mIU/mL Urine Color Yellow (Yellow) Urine Turbidity Clear (Clear) Urine pH 6.0 (5.0-7.0) Ur Specific [place] 1.024 (1.003-1.030) Urine Protein <15 mg/dl (Negative) mg/dL Urine Glucose (UA) Neg (Negative) mg/dL Urine Ketones Tr (Negative) mg/dL Urine Blood Lg (Negative) Urine Nitrite Neg (Negative) Ur Reducing Substances Not Reportable Urine Bilirubin Neg (Negative) Urine Ictotest Not Reportable Urine Urobilinogen < 2.0 (<2.0) mg/dL Ur Leukocyte Esterase Neg (Negative) Urine WBC (Auto) 3.0 (0.0-6.0) /HPF Urine RBC (Auto) 26.0 (0.0-6.0) /HPF U Epithel Cells (Auto) 8.0 (0-13.0) /HPF Urine Bacteria (Auto) 1+ (Negative) /HPF Urine Mucus 2+ /HPF Urine HCG, Qual Negative (Negative) - Radiology Data Radiology results: report reviewed Ordering Physician: BO MELGAR Date of Service: 11/01/20 Procedure(s): US transvaginal Accession Number(s): [id number] cc: BO MELGAR ULTRASOUND PELVIS INDICATION: pelvic pain. TECHNIQUE: Transabdominal and Transvaginal. Duplex Color Doppler used: Yes. COMPARISON: None available FINDINGS: Uterus: Present. Size: 8.0 x 3.8 x 4.5 cm. Endometrial complex: Normal measuring 9 mm. Mass lesions: None. Additional findings: None. Right Ovary -- Normal. Blood flow: Normal. Cyst or mass: Collapsed right corpus luteal cyst measuring 2.8 x 2.4 x 2.6 cm Left Ovary-- Normal. Blood flow: Normal. Cyst or mass: None. Urinary Bladder: Normal. Free Fluid: None. Additional Findings: None. IMPRESSION: 1. 2.8 cm collapsed right corpus luteal cyst. No free fluid or torsion Signer Name: Navi Grigsby MD Signed: 11/01/2020 7:45 PM Workstation Name: [id number] Transcribed By: TL Dictated By: Navi Grigsby MD Electronically Authenticated By: Navi Grigsby MD Signed Date/Time: 11/01/201944 DD/ 42 TD/TT: - Medical Decision Making Patient is a 35-year-old female presents emergency room complaints of suprapubic abdominal cramping that began 2 days ago. Patient states that she is concerned because she has a history of ectopic . She states her last menstrual cycle was 10/12/2020. She states that she also has a history of ovarian cyst. She denies any nausea, vomiting, diarrhea, fever, hematochezia, melena, hematemesis, vaginal discharge, vaginal bleeding, vaginal irritation, back pain, urinary symptoms. She has an allergy to ceftriaxone contrast dye, Toradol, s hellfish. vss. no abd ttp, no guarding, no rebound, no rigidity, normal bowel sounds, no peritoneal signs. labs are normal. UA is WNL. urine preg is negative. pelvic US: 1. 2.8 cm collapsed right corpus luteal cyst. No free fluid or torsion. discussed all results with pt and answered questions. advised pt May alternate Tylenol or ibuprofen as needed for discomfort. Follow-up with your primary care doctor. Follow-up with COMPUTER APPLICATION DEVELOPER. Return to emergency room for any new or symptoms. Critical care attestation.: If time is entered above; I have spent that time in minutes in the direct care of this critically ill patient, excluding procedure time. ED Disposition Clinical Impression: Abdominal pain Qualifiers: Abdominal location: lower abdomen, unspecified Qualified Code(s): R10.30 - Lower abdominal pain, unspecified Ovarian cyst Qualifiers: Laterality: right Qualified Code(s): N83.201 - Unspecified ovarian cyst, right side Disposition: TO HOME OR SELFCARE Is pt being admited?: No Does the pt Need Aspirin: No Condition: Stable Instructions: Ovarian Cyst, Abdominal Pain (ED) Additional Instructions: May alternate Tylenol or ibuprofen as needed for discomfort. Follow-up with your primary care doctor. Follow-up with COMPUTER APPLICATION DEVELOPER. Return to emergency room for any new or symptoms. Referrals: PRIMARY CARE,MD [Primary Care Provider] - 2-3 Days your, statistical reporting analyst [Other] - 2-3 Days Time of Disposition: 20:27 Print Language: MALAYSIAN
--- NOTE | 2020-11-01 19:49 | Ultrasound Report ---
ULTRASOUND PELVIS INDICATION: pelvic pain. TECHNIQUE: Transabdominal and Transvaginal. Duplex Color Doppler used: Yes. COMPARISON: None available FINDINGS: Uterus: Present. Size: 8.0 x 3.8 x 4.5 cm. Endometrial complex: Normal measuring 9 mm. Mass lesions: None. Additional findings: None. Right Ovary -- Normal. Blood flow: Normal. Cyst or mass: Collapsed right corpus luteal cyst measuring 2.8 x 2.4 x 2.6 cm Left Ovary-- Normal. Blood flow: Normal. Cyst or mass: None. Urinary Bladder: Normal. Free Fluid: None. Additional Findings: None. IMPRESSION: 1. 2.8 cm collapsed right corpus luteal cyst. No free fluid or torsion Signer Name: Navi Grigsby MD Signed: 11/01/2020 7:45 PM Workstation Name: [id number]
[2020-11-01 19:54] LABS: Basophils # (Auto) 0.1 K/mm3 (0.0-0.1); Basophils % (Auto) 0.7 % (0.0-1.8); Eosinophils # (Auto) 0.1 K/mm3 (0.0-0.4); Eosinophils % (Auto) 1.4 % (0.0-4.3); Hematocrit 38.9 % (30.3-42.9); Hemoglobin 12.8 gm/dl (10.1-14.3); Lymphocytes # (Auto) 2.1 K/mm3 (1.2-5.4); Lymphocytes % (Auto) 26.6 % (13.4-35.0); Mean Corpuscular HGB Conc 33 % (30-34); Mean Corpuscular Volume 79 fl (79-97); Monocytes # (Auto) 0.6 K/mm3 (0.0-0.8); Monocytes % (Auto) 7.9 % (0.0-7.3); Platelet Count 259 K/mm3 (140-440); Red Cell Distribution Width 14.4 % (13.2-15.2)
[2020-11-01 20:13] LABS: Alanine Aminotransferase 14 units/L (7-56); Albumin 4.2 g/dL (3.9-5); Blood Urea Nitrogen 10 mg/dL (7-17); Hemolysis Index 11
[2020-11-01 20:19] LABS: BUN/Creatinine Ratio 17
== END 2020-11-01 20:39 | disposition home or self-care (01) ==
LOC: ED 18:01
DX: N83.201 Unspecified ovarian cyst, right side (principal); R10.2 Pelvic and perineal pain; Z98.890 Other specified postprocedural states; Z79.899 Other long term (current) drug therapy; Z88.8 Allergy status to other drugs, medicaments and biological substances
CPT/HCPCS: 36415; 76830; 76856; 80053; 81001; 81025; 84702; 85025

== ENCOUNTER 2021-04-10 21:38 | Emergency (ER) | payer MEDICAID ==
[2021-04-10 21:43] VITALS: BP 137/89
[2021-04-11] MEDS ORDERED: HYDROcodone/ACETAMINOPHEN 5-325 MG TAB PO STA (01:52)
--- NOTE | 2021-04-11 03:12 | XRay Report ---
XR chest routine 2V INDICATION / CLINICAL INFORMATION: chest pain. COMPARISON: None available. FINDINGS: SUPPORT DEVICES: None. HEART /PULMONARY VASCULATURE: No significant abnormality. LUNGS / PLEURA: No significant pulmonary or pleural abnormality. No pneumothorax. ADDITIONAL FINDINGS: No significant additional findings. IMPRESSION: 1. No acute findings. Signer Name: Oleksandr Mercado MD Signed: 04/11/2021 3:08 AM Workstation Name: [id number]
--- NOTE | 2021-04-11 03:41 | Emergency Department Report ---
ED Fever HPI - General Chief Complaint: Chest Pain Stated Complaint: CHEST PAIN PUI?: No Time Seen by Provider: 04/11/21 01:52 Source: patient Exam Limitations: no limitations - History of Present Illness Timing/Duration: yesterday Fever Severity/Quality: no fever Associated Symptoms: chest pain. denies: confusion, cough, diaphoresis, muscle aches, nausea/vomiting, rash, shortness of breath, stiff neck, syncope, weakness ED Review of Systems ROS: Stated complaint: CHEST PAIN Other details as noted in HPI Comment: All other systems reviewed and negative ED Past Medical Hx - Past Medical History Previous Medical History?: Yes Hx Hypertension: No Hx Congestive Heart Failure: No Hx Diabetes: No Hx Deep Vein Thrombosis: No Hx Renal Disease: No Hx Sickle Cell Disease: No Hx Seizures: No Hx Asthma: No Hx COPD: No Hx HIV: No Additional medical history: ovarian cyst - Surgical History Past Surgical History?: Yes Additional Surgical History: ectopic-august 2018 - Social History Smoking Status: Never Smoker Substance Use Type: None - Medications Home Medications: Home Medications Medication Instructions Recorded Confirmed Last Taken Type oxyCODONE /ACETAMINOPHEN [Percocet 1 tab PO Q6HR PRN #20 tablet 08/22/19 08/30/19 Unknown Rx 5/325] Doxycycline Hyclate 100 mg PO Q12H #20 tablet. 01/02/20 Unknown Rx Fluconazole (Nf) [Diflucan TAB] 150 mg PO ONCE #2 tablet 01/02/20 Unknown Rx HYDROcodone/APAP 5-325 [Amistad 1 each PO Q6HR PRN #12 tablet 01/02/20 Unknown Rx 5/325] Ibuprofen [Motrin] 800 mg PO Q8HR PRN #30 tablet 01/02/20 Unknown Rx Ondansetron [Zofran Odt] 4 mg PO Q6HR PRN #20 tab.rapdis 01/02/20 Unknown Rx metroNIDAZOLE [Flagyl] 500 mg PO Q12HR #20 tab 01/02/20 Unknown Rx predniSONE [Deltasone] 50 mg PO QDAY #5 tab 04/11/21 Unknown Rx ED Physical Exam - General Limitations: Language Barrier General appearance: alert, in no apparent distress - Head Head exam: Present: atraumatic, normocephalic - Eye Eye exam: Present: normal appearance, PERRL, EOMI Pupils: Present: normal accommodation - ENT ENT exam: Present: normal exam, normal orophraynx, mucous membranes moist, TM's normal bilaterally - Neck Neck exam: Present: normal inspection, tenderness, full ROM, lymphadenopathy - Respiratory Respiratory exam: Present: normal lung sounds bilaterally. Absent: respiratory distress - Cardiovascular Cardiovascular Exam: Present: regular rate, normal rhythm. Absent: systolic murmur, diastolic murmur, rubs, gallop - GI/Abdominal GI/Abdominal exam: Present: soft, normal bowel sounds - Extremities Exam Extremities exam: Present: normal inspection - Back Exam Back exam: Present: normal inspection - Neurological Exam Neurological exam: Present: alert, oriented X3 - Psychiatric Psychiatric exam: Present: normal affect, normal mood - Skin Skin exam: Present: warm, dry, intact, normal color. Absent: rash ED Course Vital Signs 04/10/21 21:42 Temperature 98.0 F Pulse Rate 81 Respiratory 18 Rate Blood Pressure 137/89 O2 Sat by Pulse 100 Oximetry ED Medical Decision Making - Radiology Data Radiology results: report reviewed No acute processes on chest x-ray - Medical Decision Making This patient presents with chest pain that is very unlikely angina or acute coronary syndrome. The emergency department evaluation has not identified any cause for suspicion that this chest pain has a cardiac etiology. Based on their history, EKG (which showed no evidence of ischemia or infarction) and imaging, in addition to the patient's physical exam, I see no evidence at this time for a malignant etiology for the patient's chest pain. There is no acute evidence for pulmonary embolus, acute myocardial infarction, pneumothorax, Boerhaeve syndrome, cardiac tamponade, thoracic artery dissection, or any other emergent cardiac, pulmonary or aortic pathology. Given the low pre-test probability for cardiac etiology of chest pain and the absence of any sign of ischemia or infarction, discharge for outpatient follow-up and further evaluation is reasonable. I have explained to the patient that even though a cardiac problem is very unlikely, follow-up and further testing is required to reduce further the already small uncertainty that exists. Other life-threatening diagnoses have been considered. The patient understands the need to return immediately if their symptoms worsen or they develop any new symptoms, and not to engage in any significant exertional activity until follow-up is obtained. Critical care attestation.: If time is entered above; I have spent that time in minutes in the direct care of this critically ill patient, excluding procedure time. ED Disposition Clinical Impression: Chest pain Disposition: HOME / SELF CARE / HOMELESS Is pt being admited?: No Does the pt Need Aspirin: No Condition: Stable Instructions: Nonspecific Chest Pain, Adult, Costochondritis Prescriptions: predniSONE [Deltasone] 50 mg PO QDAY #5 tab Referrals: PRIMARY CARE, [Primary Care Provider] - 3-5 Days
== END 2021-04-11 04:40 | disposition home or self-care (01) ==
LOC: ED 21:38
DX: R07.89 Other chest pain (principal); Z88.1 Allergy status to other antibiotic agents; Z91.041 Radiographic dye allergy status; Z91.013 Allergy to seafood; Z79.899 Other long term (current) drug therapy
CPT/HCPCS: 71046; 99283

== ENCOUNTER 2021-06-29 19:03 | Emergency (ER) | payer MEDICAID ==
[2021-06-29 19:29] VITALS: BP 146/85
[2021-06-29 20:04] LABS: Basophils # (Auto) 0.1 K/mm3 (0.0-0.1); Basophils % (Auto) 0.8 % (0.0-1.8); Eosinophils # (Auto) 0.2 K/mm3 (0.0-0.4); Hematocrit 36.5 % (30.3-42.9); Hemoglobin 11.5 gm/dl (10.1-14.3); Lymphocytes # (Auto) 2.2 K/mm3 (1.2-5.4); Lymphocytes % (Auto) 32.9 % (13.4-35.0); Mean Corpuscular HGB Conc 32 % (30-34); Mean Corpuscular Volume 81 fl (79-97); Monocytes # (Auto) 0.5 K/mm3 (0.0-0.8); Platelet Count 289 K/mm3 (140-440); Red Blood Count 4.48 M/mm3 (3.65-5.03); Red Cell Distribution Width 14.8 % (13.2-15.2)
[2021-06-29 21:54] LABS: Bilirubin,Urine NEG (Negative); Blood,Urine SM (Negative); Color,Urine Straw (Yellow); Mucus,Urine FEW /HPF; Protein,Urine <15 mg/dL mg/dL (Negative); Urobilinogen,Urine < 2.0 mg/dL (<2.0)
[2021-06-29 22:04] LABS: Alanine Aminotransferase 15 units/L (7-56); Albumin 4.3 g/dL (3.9-5); BUN/Creatinine Ratio 20; Blood Urea Nitrogen 12 mg/dL (7-17); Calcium 9.2 mg/dL (8.4-10.2); Hemolysis Index 1
--- NOTE | 2021-06-29 23:13 | Ultrasound Report ---
EXAMINATION: Obstetrical Ultrasound, 06/29/2021 INDICATION: Vaginal bleeding in early COMPARISON: No relevant prior study is available for comparison. FINDINGS: Uterus: The uterus is within normal limits in size measuring 8.0 x 4.4 x 4.8 cm. There is a single hy poechoic oval structure within the high endometrial canal measuring 0.6 cm. No pole or yolk sac is identified. Adnexa: Evaluation of the adnexal regions demonstrates no focal abnormality. Doppler flow is demonstr ated to both adnexal regions. No free pelvic fluid is identified. IMPRESSION: 1. Oval anechoic structure within the endometrial canal which is indeterminate and may represent an early gestational sac. No pole or yolk sac is identified but it may be too early to visualize t he structures. Clinical correlation and short-term follow-up is suggested in this patient with a hist ory of ectopic . 2. Normal sonographic appearance of the bilateral adnexal regions. Signer Name: Carol Parker MD Signed: 06/29/2021 11:08 PM Workstation Name: [id number]
--- NOTE | 2021-06-29 23:44 | Emergency Department Report ---
ED Female HPI - General Chief complaint: Vaginal Bleeding Stated complaint: VAG BLEEDING/CRAMPING/PREG Source: patient Mode of arrival: Ambulatory Limitations: No Limitations - History of Present Illness Initial comments: Patient is a A3 35-year-old -[place] female who is approximately 5 to 6 weeks gestation and who presents to the ED with pelvic pain and vaginal bleeding for the last 2 days. Patient states that her LMP was around May 10, 2021 and that she found out that she was about 2 weeks ago. Patient states that she has had multiple bleeding episodes with small blood clots. Patient states that the suprapubic pain also radiates to the lower back. Patient denies fever, chills, dizziness, syncope, nausea and vomiting, chest pain or shortness of breath, or vaginal discharge. MD Complaint: vaginal bleeding, pelvic pain -: Sudden, days(s) (2) Location: suprapubic Radiation: non-radiating Severity: severe Severity scale (0 -10): 7 Quality: cramping, sharp Consistency: constant Improves with: none Worsens with: none Are you Now?: Yes (6 weeks gestation) Last Menstrual Period: 04/30/21 EDC: 02/04/22 Associated Symptoms: denies other symptoms, vaginal bleeding, abdominal pain (suprapubic ). denies: nausea/vomiting, fever/chills, loss of appetite, dysuria, hematuria, rash, seizure, shortness of breath, syncope, weakness - Related Data Sexually active: Yes : 6 Para: 2 A: 3 Previous Rx's Medication Instructions Recorded Last Taken Type oxyCODONE /ACETAMINOPHEN [Percocet 1 tab PO Q6HR PRN #20 tablet 08/22/19 Unknown Rx 5/325] Doxycycline Hyclate 100 mg PO Q12H #20 tablet. 01/02/20 Unknown Rx Fluconazole (Nf) [Diflucan TAB] 150 mg PO ONCE #2 tablet 01/02/20 Unknown Rx HYDROcodone/APAP 5-325 [Cocoa 1 each PO Q6HR PRN #12 tablet 01/02/20 Unknown Rx 5/325] Ibuprofen [Motrin] 800 mg PO Q8HR PRN #30 tablet 01/02/20 Unknown Rx Ondansetron [Zofran Odt] 4 mg PO Q6HR PRN #20 tab.raptika 01/02/20 Unknown Rx metroNIDAZOLE [Flagyl] 500 mg PO Q12HR #20 tab 01/02/20 Unknown Rx predniSONE [Deltasone] 50 mg PO QDAY #5 tab 04/11/21 Unknown Rx Acetaminophen [Tylenol] 500 mg PO Q6HR PRN #30 tablet 06/29/21 Unknown Rx 21/Iron Fu/Folic Acid 1 each PO DAILY #30 tab 06/29/21 Unknown Rx [ Complete Caplet] Allergies Allergy/AdvReac Type Severity Reaction Status Date / Time ceftriaxone Allergy Hives Verified 11/01/20 18:07 Iodinated Contrast Media Allergy Itching Verified 11/01/20 18:07 ketorolac [From Toradol] Allergy Hives Verified 11/01/20 18:07 shellfish derived Allergy Anaphylaxis Verified 11/01/20 18:07 ED Review of Systems ROS: Stated complaint: VAG BLEEDING/CRAMPING/PREG Other details as noted in HPI Constitutional: denies: chills, fever Eyes: denies: eye pain, eye discharge, vision change ENT: denies: ear pain, throat pain Respiratory: denies: cough, shortness of breath, wheezing Cardiovascular: denies: chest pain, palpitations Endocrine: no symptoms reported Gastrointestinal: abdominal pain (suprapubic). denies: nausea, vomiting, diarrhea Genitourinary: frequency, hematuria, abnormal menses (heavy vaginal bleeding). denies: urgency, dysuria, discharge Musculoskeletal: denies: back pain, joint swelling, arthralgia Skin: denies: rash, lesions Neurological: denies: headache, weakness, paresthesias Psychiatric: denies: anxiety, depression Hematological/Lymphatic: denies: easy bleeding, easy bruising ED Past Medical Hx - Past Medical History Previous Medical History?: No Hx Hypertension: No Hx Congestive Heart Failure: No Hx Diabetes: No Hx Deep Vein Thrombosis: No Hx Renal Disease: No Hx Sickle Cell Disease: No Hx Seizures: No Hx Asthma: No Hx COPD: No Hx HIV: No Additional medical history: ovarian cyst - Surgical History Past Surgical History?: Yes Additional Surgical History: ectopic-august 2018 - Social History Smoking Status: Never Smoker - Medications Home Medications: Home Medications Medication Instructions Recorded Confirmed Last Taken Type oxyCODONE /ACETAMINOPHEN [Percocet 1 tab PO Q6HR PRN #20 tablet 08/22/19 08/30/19 Unknown Rx 5/325] Doxycycline Hyclate 100 mg PO Q12H #20 tablet. 01/02/20 Unknown Rx Fluconazole (Nf) [Diflucan TAB] 150 mg PO ONCE #2 tablet 01/02/20 Unknown Rx HYDROcodone/APAP 5-325 [Cocoa 1 each PO Q6HR PRN #12 tablet 01/02/20 Unknown Rx 5/325] Ibuprofen [Motrin] 800 mg PO Q8HR PRN #30 tablet 01/02/20 Unknown Rx Ondansetron [Zofran Odt] 4 mg PO Q6HR PRN #20 tab.rapdis 01/02/20 Unknown Rx metroNIDAZOLE [Flagyl] 500 mg PO Q12HR #20 tab 01/02/20 Unknown Rx predniSONE [Deltasone] 50 mg PO QDAY #5 tab 04/11/21 Unknown Rx Acetaminophen [Tylenol] 500 mg PO Q6HR PRN #30 tablet 06/29/21 Unknown Rx 21/Iron Fu/Folic Acid 1 each PO DAILY #30 tab 06/29/21 Unknown Rx [ Complete Caplet] ED Physical Exam - General Limitations: No Limitations General appearance: alert, in no apparent distress - Head Head exam: Present: atraumatic, normocephalic, normal inspection - Eye Eye exam: Present: normal appearance, PERRL, EOMI Pupils: Present: normal accommodation - ENT ENT exam: Present: normal exam, normal orophraynx, mucous membranes moist, TM's normal bilaterally, normal external ear exam - Neck Neck exam: Present: normal inspection, full ROM. Absent: tenderness - Respiratory Respiratory exam: Present: normal lung sounds bilaterally. Absent: respiratory distress, wheezes, rales, stridor, chest wall tenderness, accessory muscle use, prolonged expiratory, other - Cardiovascular Cardiovascular Exam: Present: regular rate, normal rhythm, normal heart sounds. Absent: systolic murmur, diastolic murmur, rubs, gallop - GI/Abdominal GI/Abdominal exam: Present: soft, tenderness (Palpable mild suprapubic tenderness), normal bowel sounds. Absent: guarding, rebound, hyperactive bowel sounds, hypoactive bowel sounds, mass - Bi-manual exam: Present: other (Pelvic exam deferred at this time) - Extremities Exam Extremities exam: Present: normal inspection, full ROM, normal capillary refill. Absent: pedal edema, calf tenderness - Back Exam Back exam: Present: normal inspection, full ROM. Absent: tenderness, CVA tenderness (R), CVA tenderness (L), muscle spasm, paraspinal tenderness, vertebral tenderness - Neurological Exam Neurological exam: Present: alert, oriented X3, CN II-XII intact, normal gait, reflexes normal - Psychiatric Psychiatric exam: Present: normal affect, normal mood - Skin Skin exam: Present: warm, dry, intact, normal color. Absent: rash ED Course Vital Signs 06/29/21 19:17 Temperature 98.6 F Pulse Rate 83 Respiratory 18 Rate Blood Pressure 146/85 O2 Sat by Pulse 100 Oximetry ED Medical Decision Making - Lab Data Result diagrams: 06/29/21 19:37 06/29/21 19:37 - Radiology Data Radiology results: report reviewed, image reviewed [facility] [address] [id number] Ultrasound Report Signed Patient: AIDA BLAIR MR# : [id number] : 1985 Acct:[id number] Age/Sex: 35 / F ADM Date: 06/29/21 Loc: ED Attending Dr: Ordering Physician: OB GRACIA Date of Service: 06/29/21 Procedure(s): US OB transvaginal Accession Number(s): [id number] cc: BO GRACIA EXAMINATION: Obstetrical Ultrasound, 06/29/2021 INDICATION: Vaginal bleeding in early COMPARISON: No relevant prior study is available for comparison. FINDINGS: Uterus: The uterus is within normal limits in size measuring 8.0 x 4.4 x 4.8 cm. There is a single hypoechoic oval structure within the high endometrial canal measuring 0.6 cm. No pole or yolk sac is identified. Adnexa: Evaluation of the adnexal regions demonstrates no focal abnormality. Doppler flow is demonstrated to both adnexal regions. No free pelvic fluid is identified. IMPRESSION: 1. Oval anechoic structure within the endometrial canal which is indeterminate and may represent an early gestational sac. No pole or yolk sac is identified but it may be too early to vis ualize the structures. Clinical correlation and short-term follow-up is suggested in this patient with a history of ectopic . 2. Normal sonographic appearance of the bilateral adnexal regions. Signer Name: Carol Parker MD Signed: 06/29/2021 11:08 PM Workstation Name: [id number] Transcribed By: EB Dictated By: Carol Parker MD Electronically Authenticated By: Carol Parker MD Signed Date/Time: 06/29/212307 DD/ 00 TD/TT: [facility] [address] [place] [address] Ultrasound Report Signed Patient: AIDA BLAIR MR# : [id number] : 1985 Acct:[id number] Age/Sex: 35 / F ADM Date: 06/29/21 Loc: ED Attending Dr: Ordering Physician: BO GRACIA Date of Service: 06/29/21 Procedure(s): US OB <= 14 weeks fetus Accession Number(s): [id number] cc: BO GRACIA EXAMINATION: Obstetrical Ultrasound, 06/29/2021 INDICATION: Vaginal bleeding in early COMPARISON: No relevant prior study is available for comparison. FINDINGS: Uterus: The uterus is within normal limits in size measuring 8.0 x 4.4 x 4.8 cm. There is a single hypoechoic oval structure within the high endometrial canal measuring 0.6 cm. No pole or yolk sac is identified. Adnexa: Evaluation of the adnexal regions demonstrates no focal abnormality. Doppler flow is demonstrated to both adnexal regions. No free pelvic fluid is identified. IMPRESSION: 1. Oval anechoic structure within the endometrial canal which is indeterminate and may represent an early gestational sac. No pole or yolk sac is identified but it may be too early to vis ualize the structures. Clinical correlation and short-term follow-up is suggested in this patient with a history of ectopic . 2. Normal sonographic appearance of the bilateral adnexal regions. Signer Name: Carol Parker MD Signed: 06/29/2021 11:08 PM Workstation Name: [id number] Transcribed By: BENITO Dictated By: Carol Parker MD Electronically Authenticated By: Carol Parker MD Signed Date/Time: 06/29/212307 DD/ 00 TD/TT: Print - Medical Decision Making This is a A3 35-year-old -[place] female who is approximately 5 to 6 weeks gestation and who presents to the ED with pelvic pain and vaginal bleeding for the last 2 days. Patient states that her LMP was around May 10, 2021 and that she found out that she was about 2 weeks ago. Patient states that she has had multiple bleeding episodes with small blood clots. Patient states that the suprapubic pain also radiates to the lower back. In the ED, patient is alert and oriented x3 and is not in any distress. Patient was treated for pain with Tylenol in the ED. Lab test results were reviewed and are all nonactionable and hCG quant was 1408. Transvaginal ultrasound showed an oval anechoic structure within the endometrial canal which is indeterminate and may represent an early gestational sac. No pole or yolk sac is identified but it may be too early to visualize the structures. Clinical correlation and short-term follow-up is suggested in this patient with a history of ectopic . It therefore showed a normal sonographic appearance of the bilateral adnexal regions. On reevaluation, patient's pain is well controlled medication. Patient was discharged home on medications advised to maintain a complete pelvic rest, and to follow-up with the [facility] ADMINISTRATOR physician in 5 to 7 days for reevaluation or return to the ED immediately if symptoms get worse. - Differential Diagnosis Ectopic ; threatened miscarriage; UTI; ovarian cyst;subcho. bleed Critical care attestation.: If time is entered above; I have spent that time in minutes in the direct care of this critically ill patient, excluding procedure time. ED Disposition Clinical Impression: Threatened miscarriage in early , Vaginal bleeding affecting early , Pelvic pain during in first trimester, antepartum Disposition: HOME / SELF CARE / HOMELESS Is pt being admited?: No Does the pt Need Aspirin: No Condition: Stable Instructions: Pelvic Pain, Female, [id number], Threatened Miscarriage, [id number], Vaginal Bleeding During , First Trimester, [id number] Additional Instructions: All lab test results were reviewed and are all nonactionable, and your beta hCG quant is 1408. Transvaginal ultrasound showed an oval anechoic structure within the endometrial canal which is indeterminate and may represent an early gestational sac. No pole or yolk sac is identified but it may be too early to visualize the structures. Clinical correlation and short-term follow-up is suggested in this patient with a history of ectopic . Therefore maintain a complete pelvic rest with no strenuous or physical activities including sexual intercourse, follow-up with your [facility]S ADMINISTRATOR physician in 3 to 5 d ays for reevaluation. Take Tylenol as needed for pain, and return to the ED immediately if your symptoms get worse. Prescriptions: Acetaminophen [Tylenol] 500 mg PO Q6HR PRN #30 tablet PRN Reason: Pain , Severe (7-10) 21/Iron Fu/Folic Acid [ Complete Caplet] 1 each PO DAILY #30 tab Referrals: RUBIN HARRIS MD [Staff Physician] - 3-5 Days Time of Disposition: 23:51 Print Language: KINYARWANDA
== END 2021-06-30 00:25 | disposition home or self-care (01) ==
LOC: ED 19:03
DX: O20.0 Threatened abortion (principal); O26.891 Other specified pregnancy related conditions, first trimester; R10.2 Pelvic and perineal pain; Z91.013 Allergy to seafood; Z91.041 Radiographic dye allergy status
CPT/HCPCS: 36415; 76801; 76817; 80053; 81001; 84702; 84703; 85025; 86900; 86901; 99284

== ENCOUNTER 2021-07-10 16:29 | Emergency (ER) | payer MEDICAID ==
[2021-07-10 16:51] VITALS: BP 112/77
[2021-07-10] MEDS ORDERED: ACETAMINOPHEN 500 MG TAB PO ONE (17:30)
--- NOTE | 2021-07-10 17:35 | Emergency Department Report ---
ED HPI - General Chief complaint: Vaginal Bleeding Stated complaint: CRAMPING BLEEDING Time Seen by Provider: 07/10/21 17:16 Source: patient, old records reviewed Mode of arrival: Ambulatory Limitations: No Limitations - History of Present Illness Initial comments: 35-year-old female presents to the hospital with complaints of worsening vaginal bleeding suprapubic cramping today. Patient started with vaginal spotting 2 days ago. Now she is bleeding heavy with moderate to severe intermittent abdominal cramps without aggravating or alleviating factors. LMP reported as 05/13/2021 with estimated gestational age of 8 weeks and 2 days. Patient was seen here on June 29 for vaginal spotting and had a low-lying gestational sac on ultrasound. 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 This is her sixth , she has 2 children, 2 previous abortions, and was treated with methotrexate for an ectopic 2 years ago. Patient take Tylenol 500 mg prior to arrival - Related Data Previous Rx's Medication Instructions Recorded Last Taken Type oxyCODONE /ACETAMINOPHEN [Percocet 1 tab PO Q6HR PRN #20 tablet 08/22/19 Unknown Rx 5/325] Doxycycline Hyclate 100 mg PO Q12H #20 tablet. 01/02/20 Unknown Rx Fluconazole (Nf) [Diflucan TAB] 150 mg PO ONCE #2 tablet 01/02/20 Unknown Rx HYDROcodone/APAP 5-325 [Sebec 1 each PO Q6HR PRN #12 tablet 01/02/20 Unknown Rx 5/325] Ibuprofen [Motrin] 800 mg PO Q8HR PRN #30 tablet 01/02/20 Unknown Rx Ondansetron [Zofran Odt] 4 mg PO Q6HR PRN #20 tab.rapdis 01/02/20 Unknown Rx metroNIDAZOLE [Flagyl] 500 mg PO Q12HR #20 tab 01/02/20 Unknown Rx predniSONE [Deltasone] 50 mg PO QDAY #5 tab 04/11/21 Unknown Rx Acetaminophen [Tylenol] 500 mg PO Q6HR PRN #30 tablet 06/29/21 Unknown Rx 21/Iron Fu/Folic Acid 1 each PO DAILY #30 tab 06/29/21 Unknown Rx [ Complete Caplet] HYDROcodone/APAP 5-325 [Sebec 1 each PO Q6HR PRN #12 tablet 07/10/21 Unknown Rx 5/325] Allergies Allergy/AdvReac Type Severity Reaction Status Date / Time ceftriaxone Allergy Hives Verified 11/01/20 18:07 Iodinated Contrast Media Allergy Itching Verified 11/01/20 18:07 ketorolac [From Toradol] Allergy Hives Verified 11/01/20 18:07 shellfish derived Allergy Anaphylaxis Verified 11/01/20 18:07 ED Review of Systems ROS: Stated complaint: CRAMPING BLEEDING Other details as noted in HPI Comment: All other systems reviewed and negative ED Past Medical Hx - Past Medical History Hx Hypertension: No Hx Congestive Heart Failure: No Hx Diabetes: No Hx Deep Vein Thrombosis: No Hx Renal Disease: No Hx Sickle Cell Disease: No Hx Seizures: No Hx Asthma: No Hx COPD: No Hx HIV: No Additional medical history: ovarian cyst - Surgical History Additional Surgical History: ectopic-august 2018 - Social History Smoking Status: Never Smoker - Medications Home Medications: Home Medications Medication Instructions Recorded Confirmed Last Taken Type oxyCODONE /ACETAMINOPHEN [Percocet 1 tab PO Q6HR PRN #20 tablet 08/22/19 08/30/19 Unknown Rx 5/325] Doxycycline Hyclate 100 mg PO Q12H #20 tablet. 01/02/20 Unknown Rx Fluconazole (Nf) [Diflucan TAB] 150 mg PO ONCE #2 tablet 01/02/20 Unknown Rx HYDROcodone/APAP 5-325 [Sebec 1 each PO Q6HR PRN #12 tablet 01/02/20 Unknown Rx 5/325] Ibuprofen [Motrin] 800 mg PO Q8HR PRN #30 tablet 01/02/20 Unknown Rx Ondansetron [Zofran Odt] 4 mg PO Q6HR PRN #20 tab.rapdis 01/02/20 Unknown Rx metroNIDAZOLE [Flagyl] 500 mg PO Q12HR #20 tab 01/02/20 Unknown Rx predniSONE [Deltasone] 50 mg PO QDAY #5 tab 04/11/21 Unknown Rx Acetaminophen [Tylenol] 500 mg PO Q6HR PRN #30 tablet 06/29/21 Unknown Rx 21/Iron Fu/Folic Acid 1 each PO DAILY #30 tab 06/29/21 Unknown Rx [ Complete Caplet] HYDROcodone/APAP 5-325 [Sebec 1 each PO Q6HR PRN #12 tablet 07/10/21 Unknown Rx 5/325] ED Physical Exam - General Limitations: No Limitations - Other Other exam information: General: No acute distress Head: Atraumatic Eyes: normal appearance ENT: Moist mucous membranes Neck: Normal appearance, no midline tenderness Chest: Clear to auscultation bilaterally CV: Regular rate and rhythm Abdomen: Soft, normal bowel sounds, mild suprapubic tenderness Back: Normal inspection Extremity: Normal inspection, full range of motion Neuro: Alert O x 3, no facial asymmetry, speech clear, no gross motor sensory deficit Psych: Tearful, sad Skin: No rash ED Course Vital Signs 07/10/21 16:51 Temperature 98.6 F Pulse Rate 79 Respiratory 16 Rate Blood Pressure 112/77 [Left] O2 Sat by Pulse 100 Oximetry - Consultations Consultation #1: 07/10/21 20:09 case d/w Dr Junior who states results consistent with failing . Patient may be medicated with more aggressive pain medication and recommends follow-up in the office after 10 AM as a walk in. ED Medical Decision Making - Lab Data Result diagrams: 07/10/21 17:39 Lab Results 07/10/21 07/10/21 07/10/21 Range/Units 17:39 17:39 17:39 WBC 5.0 (4.5-11.0) K/mm3 RBC 4.36 (3.65-5.03) M/mm3 Hgb 11.4 (10.1-14.3) gm/dl Hct 34.6 (30.3-42.9) % MCV 80 (79-97) fl MCH 26 L (28-32) pg MCHC 33 (30-34) % RDW 14.6 (13.2-15.2) % Plt Count 299 (140-440) K/mm3 Lymph % (Auto) 37.5 H (13.4-35.0) % Dukes % (Auto) 9.6 H (0.0-7.3) % Eos % (Auto) 1.5 (0.0-4.3) % Baso % (Auto) 0.8 (0.0-1.8) % Lymph # (Auto) 1.9 (1.2-5.4) K/mm3 Dukes # (Auto) 0.5 (0.0-0.8) K/mm3 Eos # (Auto) 0.1 (0.0-0.4) K/mm3 Baso # (Auto) 0.0 (0.0-0.1) K/mm3 Seg Neutrophils % 50.6 (40.0-70.0) % Seg Neutrophils # 2.5 (1.8-7.7) K/mm3 HCG, Quant 2562 H (0-4) mIU/mL Blood Type B POSITIVE Antibody Screen Negative - Radiology Data Radiology results: report reviewed OB Ultrasound HISTORY: vag bleeding, . TECHNIQUE: Grayscale and color imaging performed. COMPARISON: None FINDINGS: Uterus measures 9.1 x 4.2 x 4.7 cm with endometrial echocomplex measuring 11 mm. There is also a gestational sac in the mid to lower uterine segment which is somewhat crescentic and contains a tiny yolk sac measuring 1 mm. Mean sac diameter is 5 mm which would correspond with an EGA of 5 weeks and 2 days but no pole is identified. Probable functional cyst seen in the left ovary measuring 1.7 cm in maximal d imension. Ovaries are both otherwise unremarkable with preserved blood flow. No significant pelvic free fluid. IMPRESSION: Abnormal appearing low lying gestational sac which is also crescentic. Findings are worrisome for failed/failing . Correlate with beta hCG level and consider short-term follow-up pelvic ultrasound as needed. - Medical Decision Making 35-year-old female presents to the hospital with persistent intermittent bleeding and cramping. Once again ultrasound shows an abnormal gestational sac with mild increase in hCG quant. After discussion with [facility] it is likely patient is having a miscarriage. Patient will be managed more aggressively for pain. Patient reports bleeding has decreased during ED stay. Patient will be advised to follow-up tomorrow. She does not require RhoGam based on blood type at this time Critical Care Time: No Critical care attestation.: If time is entered above; I have spent that time in minutes in the direct care of this critically ill patient, excluding procedure time. ED Disposition Clinical Impression: Incomplete miscarriage Disposition: 01 HOME / SELF CARE / HOMELESS Is pt being admited?: No Does the pt Need Aspirin: No Condition: Stable Instructions: Incomplete Miscarriage Additional Instructions: Take the medication as prescribed. Go to your [facility] office tomorrow after 10 AM as a walk-in to be reevaluated. Return if symptoms worsen as indicated by your discharge instructions. Prescriptions: HYDROcodone/APAP 5-325 [Sebec 5/325] 1 each PO Q6HR PRN #12 tablet PRN Reason: Pain Referrals: [facility] [Provider Group] - 07/11/21 10:00 am (You may go as a walk-in after 10 AM as per [facility] doctor investment professional) Time of Disposition: 20:51
[2021-07-10 17:55] LABS: Basophils % (Auto) 0.8 % (0.0-1.8); Eosinophils # (Auto) 0.1 K/mm3 (0.0-0.4); Eosinophils % (Auto) 1.5 % (0.0-4.3); Hematocrit 34.6 % (30.3-42.9); Hemoglobin 11.4 gm/dl (10.1-14.3); Lymphocytes # (Auto) 1.9 K/mm3 (1.2-5.4); Lymphocytes % (Auto) 37.5 % (13.4-35.0); Mean Corpuscular HGB Conc 33 % (30-34); Mean Corpuscular Volume 80 fl (79-97); Monocytes # (Auto) 0.5 K/mm3 (0.0-0.8); Monocytes % (Auto) 9.6 % (0.0-7.3); Platelet Count 299 K/mm3 (140-440); Red Blood Count 4.36 M/mm3 (3.65-5.03); Red Cell Distribution Width 14.6 % (13.2-15.2)
--- NOTE | 2021-07-10 19:05 | Ultrasound Report ---
OB Ultrasound HISTORY: vag bleeding, . TECHNIQUE: Grayscale and color imaging performed. COMPARISON: None FINDINGS: Uterus measures 9.1 x 4.2 x 4.7 cm with endometrial echocomplex measuring 11 mm. There is a lso a gestational sac in the mid to lower uterine segment which is somewhat crescentic and contains a tiny yolk sac measuring 1 mm. Mean sac diameter is 5 mm which would correspond with an EGA of 5 week s and 2 days but no pole is identified. Probable functional cyst seen in the left ovary measuring 1.7 cm in maximal dimension. Ovaries are gerald th otherwise unremarkable with preserved blood flow. No significant pelvic free fluid. IMPRESSION: Abnormal appearing low lying gestational sac which is also crescentic. Findings are worri some for failed/failing . Correlate with beta hCG level and consider short-term follow-up pe lvic ultrasound as needed. Signer Name: Ash Wells MD Signed: 07/10/2021 7:01 PM Workstation Name: [id number]
[2021-07-10] MEDS ORDERED: oxyCODONE 5 MG TAB PO ONE (20:10)
== END 2021-07-10 21:27 | disposition home or self-care (01) ==
LOC: ED 16:29
DX: O02.1 Missed abortion (principal); Z91.013 Allergy to seafood; Z91.041 Radiographic dye allergy status; Z88.1 Allergy status to other antibiotic agents
CPT/HCPCS: 36415; 76817; 84702; 85025; 86850; 86900; 86901; 99284